=== PATIENT | male | born 1950 | race Caucasian/White ===

== ENCOUNTER 2019-07-14 10:51 | Outpatient (CLI) | payer MEDICARE, SELFPAY ==
--- NOTE | ~2019-07-14 | XR_ITS ---
EXAMINATION: XR md joint inject/asp w image DATE: 07/14/2019 15:09 INDICATION: Left wrist pain and swelling and erythema. TECHNIQUE: A time-out was performed to verify the patient's name, date of , and procedure to b e performed. The procedure including the risks, benefits, and alternatives was discussed with the pat ient. Risks discussed included bleeding and infection. The patient understood the risks and agreed to proceed. The skin overlying the left radioscaphoid joint was prepped and draped in usual sterile fa shion. Anesthetic was administered with 1% lidocaine subcutaneously. An 18 G needle was advanced un bertrand fluoroscopic guidance into the joint. Fluid was aspirated. The needle was removed and the entry site was cleaned and dressed. There were no immediate complications. Fluoroscopy exposure time was 0 .1 minutes. The total number of images was 1. FINDINGS: Real-time fluoroscopy demonstrates the needle in the left radioscaphoid joint. IMPRESSION: 1. Fluoroscopy-guided left radioscaphoid joint aspiration yielding 1 mL lima, opaque fluid. Reviewed, dictated and finalized at location A. IMPRESSION: 1. Fluoroscopy-guided left radioscaphoid joint aspiration yielding 1 mL lima, op aque fluid.
[2019-07-14 11:36] LABS: Basophils Absolute Auto 0.1 K/mm3 (0.0-0.1); Basophils Percent Auto 0.4 % (0.2-1.2); Eosinophils Absolute Auto 0.2 K/mm3 (0-0.3); Eosinophils Percent Auto 1.5 % (0-4.4); Hemoglobin 17.6 g/dL (14.0-18.0); Immature Granulocyte Absolute 0.14 K/mm3 (0.00-0.031); Mean Corpuscular HGB Conc 32.6 g/dl (32-36); Mean Platelet Volume 10.1 fl (7.4-10.4); Monocytes Absolute Auto 0.9 K/mm3 (0.1-0.6); Monocytes Percent Auto 6.6 % (2.6-8.5); Neutrophils Absolute Auto 10.2 K/mm3 (1.3-6.7); Neutrophils Percent Auto 74.5 % (45.5-73.1); Platelet Count Result 386 k/mm3 (150-375); Red Blood Count 6.28 M/mm3 (4.6-6.20); Red Cell Distribution Width 13.2 % (11.5-14.5); White Blood Count 13.7 K/mm3 (4.5-10.0)
[2019-07-14 11:52] LABS: CRP 6.4 mg/dL (<1.0); Uric Acid 6.1 mg/dL (3.5-8.5)
[2019-07-14 12:03] LABS: Rheumatoid Factor 19.3 IU/ML (<12)
[2019-07-14 12:18] LABS: Erythrocyte Sedimentation Rate 11 mm/hr (0-20)
[2019-07-17 11:37] LABS: Anti Cyclic Citrullinated Pept <16 Units (<20)
== END 2019-07-14 10:52 | disposition home or self-care (01) ==
PROVIDERS: PCP Internal Medicine; Visit Provider Orthopaedic Surgery
DX: M25.532 Pain in left wrist (principal)
CPT/HCPCS: 20605; 36415; 77002; 84550; 85025; 85652; 86140; 86200; 86430; 87070; 87075; 87147; 87186; 87205

== ENCOUNTER 2022-02-07 08:25 | Outpatient (CLI) | payer MEDICARE, SELFPAY ==
[2022-02-07 20:18] LABS: Free T4 Free Thyroxine 1.61 ng/mL (0.78-2.19)
[2022-02-07 20:47] LABS: Alanine Aminotransferase 29 U/L (6-50); Albumin Level 4.3 g/dL (3.5-5.1); Alkaline Phosphatase 94 U/L (38-126); Anion Gap 8 mmol/L (8-16); Aspartate Amino Transferase 44 U/L (17-59); Bilirubin,Total 0.7 mg/dL (0.2-1.3); Blood Urea Nitrogen 17 mg/dL (9-20); Calcium 9.3 mg/dL (8.4-10.2); Carbon Dioxide 27 mmol/L (22-30); Chloride 105 mmol/L (98-107); Cholesterol 269 mg/dL (0-200); Estimated Glomerular Filt Rate > 60; Glucose 89 mg/dL (65-110); HDL Direct 44 mg/dL; Potassium 4.4 mmol/L (3.4-5.0); Sodium 140 mmol/L (137-145); Triglycerides 150 mg/dL (<150)
[2022-02-07 20:59] LABS: LDL Cholesterol Direct 133 mg/dL
[2022-02-07 21:17] LABS: Prostate Specific Antigen 1.3 ng/mL (< OR = 4.0)
== END 2022-02-07 08:26 | disposition home or self-care (01) ==
PROVIDERS: PCP Internal Medicine; Visit Provider Internal Medicine
DX: E78.00 Pure hypercholesterolemia, unspecified (principal); E03.9 Hypothyroidism, unspecified; Z12.5 Encounter for screening for malignant neoplasm of prostate
CPT/HCPCS: 36415; 80053; 80061; 84153; 84439; 84443; G0103

== ENCOUNTER 2023-11-30 00:07 | Day surgery (SDC) | payer MEDICARE, SELFPAY ==
[2023-11-28 12:21] VITALS: BMI 30.7
--- NOTE | 2023-11-28 12:29 | PC.NURSE ---
Addendum entered by Abraham Roth RN 11/28/23 13:24: Correction, proceedure time is 1230. Original Note: Report to the Outpatient Waiting Room, entrance under the green pavilion located off [address], at time _1030_ on date _[id number]_. Planned Procedure Time: _1130_.? Time changes happen often and if your time is changed the preop area will call you the afternoon before. - You and your visitor will be asked to self-screen and do not enter if you have any COVID symptoms. Please call surgeon if you need to reschedule. - A mask is optional within the hospital at this time. - No food or drink from midnight until time of surgery and no smoking Take only the following medications with a SIP of water on the morning of surgery: __Levothyroxine and celebrex DO NOT STOP ANY OF YOUR OTHER PRESCRIPTION MEDICATIONS PRIOR TO SURGERY EXCEPT THE FOLLOWING Medications to discontinue per physician None Please no make-up, nail lithuanian, hairspray, perfume, deodorant, or body powder the day of surgery.? No jewelry (including any body piercings) or valuables the day of surgery, leave them at home.? Please take a shower or bath the night before, or the morning of, surgery with an antibacterial soap.? Wear comfortable, loose fitting clothing.? - Jewelry must be removed prior to entering the operating room.? Rings and piercings that are not removed may be cut off. - The hospital will not accept responsibility for valuables.? - Please leave all valuables, including medications, at home the day of surgery. If you are going home after surgery, a licensed passenger coach driver must drive you home.? - NO public transportation without another adult if you receive anesthesia. - We recommend that an adult stay with you for 24 hours following discharge. - We also recommend that you do not drive, make important decision, drink alcoholic beverages, or take any drugs that were not prescribed by your health care provider for at least 24 hours after your discharge time. Follow any additional instructions given to you from your surgeon. Telephone instructions given to __Louis___and asked if any additional questions and then verbalized understanding. Patient advised to call surgeon office or pre surgery nurse liaison [phone] if any additional questions.
[2023-11-30] VITALS (11 sets, daily range): BP systolic 68–126; BP diastolic 51–96; PULSE 60–76; RESP 12–18; TEMP 36.1–36.5; O2SAT 96–100
[2023-11-30] MEDS: ACETAMINOPHEN 500 MG TABLET 1000 MG PO (10:35)
[2023-11-30] MEDS: LACTATED RINGERS 1,000 ML 30 ML IV CONT ×2 (10:40→15:25)
[2023-11-30] MEDS: KETOROLAC 15 MG/ML VIAL (*BKC) IV PUSH (10:45)
--- NOTE | 2023-11-30 13:21 | P.PNAN_ITS ---
Anes - Initial Pre Proc Eval Procedure: Operation Date: 11/30/23 12:30 Proposed Procedures p Rectal Examination Under Anesthesia, Excision Thrombosed External Hemorrhoids - Rocio Mckenzie MD Date/Time: 11/30/23 13:21 Surgeon: Rocio Mckenzie MD Pre Op Diagnosis: Thrombosed External Hemorrhoid Patient Data Age: 73 Gender: M Height: 1.8 m Weight: 97.7 kg Last Vital Signs Temp 36.1 C L 11/30/23 11:12 Pulse 76 11/30/23 11:12 Resp 18 11/30/23 11:12 BP 122/96 H 11/30/23 11:12 Pulse Ox 99 11/30/23 11:12 O2 Del Method Room Air 11/30/23 11:12 Allergies Allergy/AdvReac Type Severity Reaction Status Date / Time Fxdstmb-WYK-HsV Reductase Allergy Mild Unknown Verified 11/28/23 12:19 Inhibitor Home Medications Medication Instructions Recorded Confirmed Type celecoxib 200 mg capsule 200 mg PO DAILY 11/28/23 11/28/23 History hydrocortisone 2.5 % topical cream 1 applic RECTAL BID PRN 11/28/23 11/28/23 Rx with perineal applicator hemorrhoids #30 grams (Anusol-HC) levothyroxine 75 mcg capsule 75 mcg PO DAILY 11/28/23 11/28/23 History Patient hx anesthesia problems: none Family hx anesthesia problems: none Results Review: All pre-operative results and documents have been reviewed as part of the pre- operative evaluation. [facility] Past Medical History Medical History (Updated 11/28/23 @ 11:16 by Leesa Chahal) Arthritis History of meningioma Thyroid disease Surgical History Surgical History History of carpal tunnel release History of cataract extraction History of foot surgery History of hemorrhoidectomy History of laminectomy History of left knee surgery History of lumbar surgery History of microdiscectomy History of shoulder surgery Family History Family History Other Alcohol abuse Asthma Cerebrovascular accident Diabetes mellitus Social History Social History (System 02/07/19 @ 10:52 by Leny Mcqueen) Smoking status: Never smoker Alcohol intake: never Living arrangements: with family Spiritual care concerns: No Anes - Eval Final PreProcedure Day of Procedure 11/30/23 13:21 Patient weight: obese Heart: regular rate and rhythm Lungs: clear to auscultation Airway: Mallampati scale class II Neurological: alert and oriented Last oral intake: >/= 8 hours ASA classification: II Emergent: no Anesthetic plan: proceed Anesthesia type and monitoring: general LMA and standard monitoring Results Review: All pre-operative results and documents have been reviewed as part of the pre- operative evaluation. Informed Consent: The patient's anesthetic plan and its attendant risks and benefits were discussed with the patient/family/POA. Questions were solicited and answers provided to the satisfaction of the patient/family/POA.
--- NOTE | 2023-11-30 14:23 | WPDHPUPDATE1 ---
History and Physical Update Update Date/Time: 11/30/23 14:23 History and Physical has been reviewed, including an updated exam of the patient. There are NO changes in the patient's condition. Risks, benefits, and alternatives have been discussed and questions answered. Patient agrees to proceed with procedure.
[2023-11-30] MEDS: ceFAZolin 2 GM/D5W 50 ML 2 GM/50 ML BAG IVPB (14:33)
[2023-11-30] MEDS: BUPIVACAINE/EPINEPHRINE 0.5% 10 ML VIAL INFILTRATE (15:02)
--- NOTE | 2023-11-30 15:02 | SUR.PREOP ---
1100 PT AND INFORMED OF SURGERY TIME DELAY, DENIES NEEDS 1310 PT AND INFORMED OF CONTINUED SURGERY TIME DELAY, DENIES NEEDS
--- NOTE | 2023-11-30 15:05 | P.OP_ITS ---
Procedure Note - Detailed Date of Procedure 11/30/23 Pre-op Diagnosis Thrombosed External Hemorrhoid Post-op Diagnosis Same Procedure Performed Exam under anesthesia, excision thrombosed external hemorrhoid Surgeon Rocio Mckenzie MD Anesthesia General and Local Indications 73-year-old male presenting to the office with thrombosed external hemorrhoid Findings thrombosed external hemorrhoid at the 4 to 5 o'clock position Description of Procedure The patient was taken to the operating room placed in the modified lithotomy position. After adequate induction of general anesthesia, the patient was prepped and draped in the normal sterile fashion. A time-out was then done to verify the patient's identity, as well as the procedure being performed. A bilateral pudendal block was then completed. I began by doing a digital examination. A large thrombosed external hemorrhoid was noted in the right posterior position at the 4 to 5 o'clock area. I then placed anoscope into the anal canal and examined the rectum and anal canal. No other pathology was noted. I then excised this thrombosed external hemorrhoid using a hand-held LigaSure device. After excision this thrombosed hemorrhoid was sent to path ology for further review. No other pathology was again noted. Hemostasis was noted at the excision site. I then further localize the area. A large piece of Gelfoam covered with lidocaine jelly was then placed into the rectal vault. Sterile dressings were then placed. The patient tolerated the procedure well and was extubated postoperatively. He will be sent to the recovery room in stable condition. Estimated Blood Loss 5 Drains No Packing Yes Pathology None sent Complications No immediate complications Condition Stable Disposition PACU [facility] Billing Surgery - Charge Forward: Surgery Billing
[2023-11-30] MEDS: PHENYLEPHRINE 1,000 MCG/10 ML SYRINGE 100 MCG IV PUSH ×2 (15:16→15:21)
== END 2023-11-30 17:05 | disposition home or self-care (01) ==
PROVIDERS: PCP Internal Medicine; Visit Provider Surgery
PROC: (CPT 46230; principal; 2023-11-30 12:30)
DX: K64.5 Perianal venous thrombosis (principal); E07.9 Disorder of thyroid, unspecified; E66.9 Obesity, unspecified; Z68.30 Body mass index [BMI] 30.0-30.9, adult; Z98.890 Other specified postprocedural states; Z98.1 Arthrodesis status; Z86.011 Personal history of benign neoplasm of the brain; Z82.49 Family history of ischemic heart disease and other diseases of the circulatory system
CPT/HCPCS: 46230; 88304; A9270; J0690; J1100; J1885; J2250; J2371; J2405; J2704; J3010; J7120

== ENCOUNTER 2024-07-15 09:40 | Outpatient (CLI) | payer MEDICARE, SELFPAY ==
--- OUTSIDE RECORDS SUMMARY | 2024-07-15 10:40 | XMS_ITS | Clinical Summary ---
Author Organization [place] [id number] Address [address] [place] [address] Care Team Providers Care Gasoline Tester Name Role Phone Maik Freedman MD Primary Care Provider Colby Jaimes MD Unavailable [phone] Allergies Active Allergy Reactions Criticality Noted Date Comments Gmmqzcx-Zfu-Wea Reductase Inhibitors Muscle pain Medium 07/14/2019 Medications levothyroxine (SYNTHROID) 75 mcg tablet 0 Active metoprolol tartrate (LOPRESSOR) 25 mg immediate release tablet Take 0.5 tablets (12.5 mg total) by mouth 2 (two) times a day 30 tablet 0 Active oxyCODONE (ROXICODONE) 5 mg immediate release tabletIndicatio ns:Pain Take 1 tablet (5 mg total) by mouth every 4 (four) hours as needed for pain 5 tablet 0 Active Additional Information Patient not taking.Reported on 06/09/2022 acetaminophen (TYLENOL) 325 mg tablet Take 2 tablets (650 mg total) by mouth every 6 (six) hours as needed for pain 30 tablet 0 Active celecoxib (CeleBREX) 200 mg capsule 3 Active Active Problems Problem Noted Date Diagnosed Date Arthritis of wrist, left 06/09/2022 Pyogenic arthritis of left wrist 07/14/2019 Overview (07/14/2019): Added automatically from request for surgery [id number] Lumbago 12/15/2015 Degeneration of intervertebral disc of lumbar re gion 09/15/2015 Pain of right lower extremity 09/15/2015 Complete tear of rotator cuff 09/30/2008 Joint pain 09/30/2008 Surgical History Surgery Date Site/Laterality Comments KNEE SURGERY Left Knee Surgery - (Added by TW Conv) BRAIN SURGERY Brain Surgery - meningioma resection (Added by TW Conv) SHOULDER SURGERY Shoulder Surgery - (Added by TW Conv) BACK SURGERY Back Surgery - (Added by TW Conv) LAMINECTOMY 03/19/2017 - 03/18/2018 BRAIN MENINGIOMA EXCISION 03/19/1997 - 03/18/1998 EYE SURGERY cataract surgery TOE SURGERY Bilateral Medical History Medical History Date Comments Pure hypercholesterolemia High c holesterol - (Added by TW Conv) Personal history of other en docrine, nutritional and metabolic disease History of hypothyro idism - (Added by TW Conv) Atrial fibrillation (HCC) Family History Medical History Relation Name Comments Cancer Father Family history of malignant neoplasm - (Added by TW Conv) Diabetes Other Family history of diabetes mellitus - Relation: Grandmother (Added by TW Conv) Anesthesia problems Neg Hx Relation Name Status Comments Father Other Social History Tobacco Use Types Packs/Day Years Used Date Smoking Tobacco: Never Smokeless Tobacco: Never Tobacco Cessation:Counseling Given: Not Answered Alcohol Use Standard Drinks/Week Comments Defer 0 (1 standard drink = 0.6 oz pur e alcohol) Sex and Gender Information Value Date Recorded Sex Assigned at Not on file Legal Sex Male 4:03 AM [employer] Gender Identity Not on file Sexual Orientation Not on file Obstetrics History Last Filed Vital Signs Vital Sign Reading Time Taken Comments Blood Pressure 110/70 08/07/2019 9:39 AM CDT Pulse 74 08/07/2019 9:39 AM CDT Temperature 36.4 C (97.5 F) 08/07/2019 9:39 AM CDT Respiratory Rate 18 08/07/2019 9:39 AM CDT Oxygen Saturation 97% 08/07/2019 9:39 AM CDT Inhaled Oxygen Concentration - - Weight 95.3 kg (210 lb) 06/09/2022 1:17 PM CDT Height 172.7 cm (5' 8 ) 06/09/2022 1:17 PM CDT Body Mass Index 31.93 06/09/2022 1:17 PM CDT Plan of Treatment Health Maintenance Due Date Last Done Comments Colon Cancer Screening-Colonoscopy 1950 Depression Screening 1950 Hepatitis C Screening 1950 DTaP/Tdap/Td Vaccine (1 - Tdap) 1962 Hepatitis B Screening 1969 Zoster Vaccine (2 of 3) 03/02/2015 01/05/2015 Abdominal Aortic Aneurysm (A AA) Screen 2016 Well Visit 65+ 2016 Fall Risk Assessment 07/17/2020 07/18/2019 Covid-19 Vaccine (4 - 2023-2 5 season) 2023 01/03/2021, 06/04/2020, 05/13/2020 Influenza Vaccine (#1) 2023 , 01/11/2022, 12/28/2020, Additional history exists Pneumococcal vaccine 65+ Completed 02/10/2020, 01/17 Insurance MEDICARE [facility] MEDICARE [employer] [facility] MEDICARE [employer] [facility] MEDICARE [facility] Advance Directives For more information, please contact: [phone] * Full Code (Latest Code Status on File) Date Activated Date Inactivated Comments 07/15/2019 1:14 AM 07/18/2019 3:00 PM Care Teams Gasoline Tester Relationship Specialty Start Date End Date Maik Freedman MD [address] [facility] [address] [place] [address] PCP - General 07/14/19 Colby Jaimes MD [address] [facility] [address] [place] [address] Surgeon Anesthesiology 07/25/19
--- OUTSIDE RECORDS SUMMARY | 2024-07-15 10:40 | XMS_ITS | Clinical Summary ---
Author Organization [facility] Address [address] [place] [address] Care Team Providers Care Farm Operator Name Role Phone Maik Freedman MD Unavailable [phone] Maik Freedman MD Primary Care Provider [phone] Source Comments [facility],non-owned Affiliates and Associated Physician Practices is amultiple site organization consisting of ambulatory clinics and hospital sitesin [place], [place], [place] and [place]. This disclosure is being madepursuant to the Care Everywhere program and may not contain all information available regarding this patient. Last updated 17.[facility] Allergies Active Allergy Reactions Criticality Noted Date Comments Hmg-Coa-R Inhibitors Myalgias High 11/06/2017 Medications * Be aware that medications may not be up to date on this document. Alwaysverify current medications with the patient. levothyroxine (SYNTHROID) 125 MCG tablet Take 75 mcg by mouth daily before breakfast Active acetaminophen (TYLENOL) 500 MG tablet Take 2 (two) tablets by mouth as needed for Fever or Pain Maximum allowable Acetaminophen amount = 4 Grams (4000 mg) / 24 hours. Active methocarbamol (Robaxin) 500 MG tablet Take 1 (one) tablet by mouth every 6 hours 3 Active metoprolol tartrate IR (Lopressor) 25 MG tablet Take 1 (one) tablet by mouth 2 times daily 3 Active Active Problems Problem Noted Date Diagnosed Date A-fib 02/25/2023 Bacteremia 02/25/2023 S/P lumbar spinal fusion 02/23/2023 Class 1 obesity 08/15/2022 11/14/2022 Arthritis of wrist, left 06/09/2022 023 Disorder of prostate 01/23/2022 11/14/2022 Carotid bruit 01/18/2022 Hyperlipidemia 01/18/2022 Hypothyroidism 01/18/2022 Pure hypercholesterolemia 01/18/2022 Transient ischemia 01/18/2022 Transient ischemic attack 01/18/2022 Lumbar radiculopathy 01/18/2022 Idiopathic peripheral neuropathy 10/31/2021 Onychomycosis of toenail 10/31/2021 Pain in both feet 10/31/2021 COVID-19 09/29/2021 History of meningioma 12/28/2020 Dystrophia unguium 09/25/2019 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 Tinea pedis 09/25/2019 Pyogenic arthritis of hand 08/05/2019 Pyogenic arthritis of hand 08/05/2019 Pyogenic arthritis of left wrist 07/14/2019 Overview (01/18/2022): Added automatically from request for surgery [id number] History of colonic polyps 01/30/2019 Osteoarthrosis 01/30/2019 Acquired hallux rigidus of left foot 11/07/2018 Foot pain 11/07/2018 Spinal stenosis of lumbar re gion with neurogenic claudication 11/09/2017 Lumbago 12/15/2015 Degeneration of intervertebral disc of lumbar re gion 09/15/2015 Pain of right lower extremity 09/15/2015 Status post lumbar discectomy 09/07/2010 Displacement of lumbar inter vertebral disc without myelopathy 08/29/2010 Complete tear of rotator cuff 09/30/2008 Joint pain 09/30/2008 Immunizations Immunization Administration Dates Next Due Fluidinova - Engenharia de Fluidos primary monoval ent 12+ yr 0.3mL Purple cap 01/03/2021 INFLUENZA VACCINE 01/11/2022,12/28/2020 INFLUENZA VACCINE, QUADR. (F LUZONE; FLULAVAL; FLUARIX; AFLURIA QUADRIVALENT; 6MO+), 0.5 ML (IIV4) 01/04/2016 PNEUMOCOCCAL PPSV23 02/10/2020 Pneumococcal Pcv13 Conj 01/31/2019 Family History Medical History Relation Name Comments Alcohol abuse Father COPD - Chronic Obstructive Pulmonary Disease Father Other Father Stroke, liver d isease Other - Rheumatologic Father Arthisaak naik COPD - Chronic Obstructive Pulmonary Disease Mother Other Mother Stomach ulcer Thyroid Disease Mother Relation Name Status Comments Father Mother Sister Alive Social History Tobacco Use Types Packs/Day Years Used Date Smoking Tobacco: Never Smokeless Tobacco: Never Tobacco Cessation:Counseling Given: No Alcohol Use Standard Drinks/Week Comments No 0 (1 standard drink = 0.6 oz pur e alcohol) AUDIT-C Answer Date Recorded Q1: How often do you have a drink containing alcohol? Never 02/24/2023 Q2: How many drinks containi ng alcohol do you have on a typical day when you are drinking? Patient does not drink Q3: How often do you have si x or more drinks on one occasion? Never 02/24/2023 Overall Financial Resource Strain (CARDIA) Answe r Date Recorded How hard is it for you to pa y for the very basics like food, housing, medical care, and heating? Not hard at all 02/24/2023 [facility] - Occupational Stress Questionnaire Answer Date Recorded Do you feel stress - tense, restless, nervous, or anxious, or unable to sleep at night because your mind is troubled all the time - these days? Not at all 02/24/2023 Hunger Vital Sign Answer Date Recorded Within the past 12 months, y ou worried that your food would run out before you got the money to buy more. Never true 02/25/20 23 Within the past 12 months, t he food you bought just didn't last and you didn't have money to get more. Never true 02/24/2023 PRAPARE - Transportation Answer Date Re corded In the past 12 months, has l ack of transportation kept you from medical appointments or from getting medications? No 11/2022 In the past 12 months, has l ack of transportation kept you from meetings, work, or from getting things needed for daily living? No 02/24/2023 Housing Stability Vital Sign Answer Amadeo e Recorded In the last 12 months, was t here a time when you were not able to pay the mortgage or rent on time? No 02/24/2023 In the last 12 months, how many places have you lived? 1 02/24/2023 In the last 12 months, was t here a time when you did not have a steady place to sleep or slept in a detention (including now)? No 02/24/2023 Sex and Gender Information Value Date Recorded Sex Assigned at Not on file Legal Sex Male 11:49 AM SENIOR CONSULTING MANAGER Gender Identity Not on file Sexual Orientation Not on file Occupation Industry Job Start Date Job End Date retired Not on file Not on file Not on file Last Filed Vital Signs Vital Sign Reading Time Taken Comments Blood Pressure 126/89 12/19/2023 10:45 AM CDT Pulse 72 12/19/2023 10:45 AM CDT Temperature 36.3 C (97.3 F) 12/19/2023 10:45 AM CDT Respiratory Rate 18 12/19/2023 10:4 5 AM CDT Oxygen Saturation 98% 12/19/2023 10: 45 AM CDT Inhaled Oxygen Concentration - - Weight 100.5 kg (221 lb 9.6 oz) 024 10:45 AM CDT Height 180.3 cm (5' 11 ) 12/19/2023 10: 45 AM CDT Body Mass Index 30.91 12/19/2023 10:45 AM CDT Plan of Treatment Health Maintenance Due Date Last Done Comments COLOGUARD (AGES 45-75) - COLON CA SCREENING 1951 COLON MONITORING 1950 COLONOSCOPY - COLON CA SCREENING 1951 CT COLONOGRAPHY - COLON CA SCREENING 1950 Colorectal Cancer Screening 1950 FIT - COLON CA SCREENING 1951 FLEX SIG - COLON CA SCREENING 1950 LIPID TESTING 1950 MEDICARE AWV 12 MONTHS 1950 HEPATITIS C SCREENING 03/06/1969 DTAP/TDAP/TD VACCINES (1 - Tdap) 1970 ZOSTER VACCINE (1 of 2) 2001 COVID-19 VACCINE (2 - season) 2023 01/03/2021 DEPRESSION SCREENING 03/19/2024 INFLUENZA VACCINE (Season Ended) 2024 12/16/2022, 01/11/2022, 12/28/2020, Additional history exists SCREENING FOR DIABETES 03/03/2026 3, 03/01/2023, 02/27/2023, Additional history exists Respiratory Syncytial Virus (RSV) Vaccine Pt: or over 60 yrs (1 - 1-dose 75+ series) 2026 PNEUMOCOCCAL VACCINE 50+ Completed 02/10/2020, 01/17 HEPATITIS B VACCINE Aged Out No longe r eligible based on patient's age to complete this topic HIB VACCINE Aged Out No longer eligi ble based on patient's age to complete this topic HPV VACCINE Aged Out No longer eligi ble based on patient's age to complete this topic MENINGOCOCCAL (Group B) VACCINE SHARED DECISION-MAKING Aged Out No longer eligible based on patient's age to complete this topic MENINGOCOCCAL GROUPS A/C/Y/W VACCINE Aged Out No longer eligible based on patient's age to complete this topic Medical Devices Implanted Type Area Punch Machine Operator Device Identifier Shelf Expiration Date Model / Serial / Lot Kore Fiber Demineralized Cortical Fiber Implanted:Qty: 1 on 02/23/2023 by Flavio Nunez MD at [facility] N/A: Spine Lumbar 10/24/2024 [id number] / [id number] / Description:jy Slnt Dura Duraseal Pg Trilysine Amine 5 Implanted:Qty: 1 on 02/23/2023 by Flavio Nunez MD at [facility] N/A: Spine Lumbar Integra [employer] Carmen 01/17/2024 [id number] / / [id number] 22mm X 10 Mm Cage Implanted:Qty: 1 on 02/23/2023 by Flavio Nunez MD at [facility] N/A: Spine Lumbar 04/01/2026 [id number] 210 / / [id number] 22mm X 10mm Cage Implanted:Qty: 1 on 02/23/2023 by Flavio Nunez MD at [facility] N/A: Spine Lumbar 04/01/2026 [id number] 210 / / [id number] Kore Fiber Demineralized Cortical Fiber Implanted:Qty: 1 on 02/23/2023 by Flavio Nunez MD at [facility] N/A: Spine Lumbar 10/24/2024 [id number] / [id number] / Description:jy Cage Implanted:Qty: 1 on 02/23/2023 by Flavio Nunez MD at [facility] N/A: Spine Lumbar [employer] 04/01/2026 [id number] 211 / / [id number] Description:jy Cage Implanted:Qty: 1 on 02/23/2023 by Flavio Nunez MD at [facility] N/A: Spine Lumbar [id number] 211 / / [id number] Screw Set Spne [place] 5500 Ser Implanted:Qty: 12 on 02/23/2023 by Flavio Nunez MD at [facility] N/A: Spine Lumbar [employer] [id number] / / Screw 6.5mm 50mm Spne Pdcl [place]awa Nonster Implanted:Qty: 6 on 02/23/2023 by Flavio Nunez MD at [facility] N/A: Spine Lumbar [employer] [id number] / / 8.5x80 Mm Iliac Screw Implanted:Qty: 2 on 02/23/2023 by Flavio Nunez MD at [facility] N/A: Spine Lumbar [id number] / / 7.5x40mm Screw Implanted:Qty: 2 on 02/23/2023 by Flavio Nunez MD at [facility] N/A: Spine Lumbar [id number] / / 7.5x50 Mm Screw Implanted:Qty: 2 on 02/23/2023 by Flavio Nunez MD at [facility] N/A: Spine Lumbar [id number] / / Procedures Procedure Name Priority Date/Time Associated Diagnosis Comments BASIC METABOLIC PANEL (CALCIUM TOTAL) Routine 03/03/2023 3:35 AM SENIOR CONSULTING MANAGER from Last 3 Months or Most Recently Relevant to Health Maintenance Results * (ABNORMAL) BASIC METABOLIC PANEL (CALCIUM TOTAL) (03/03/2023 3:35 AM SENIOR CONSULTING MANAGER) [facility] Glucose 87 70 - 105 mg/dL 03/03/2023 6:33 AM [facility] Sodium 136 136 - 145 mmol/L 03/03/2023 6:33 AM [facility] Potassium 3.9 3.5 - 5.1 mmol/L 03/03/2023 6:33 AM [facility] Chloride 104 98 - 107 mmol/L 03/03/2023 6:33 AM [facility] CO2 21(L) 22 - 29 mmol/L 03/03/2023 6:33 AM [facility] Calcium 8.5 8.4 - 10.4 mg/dL 03/03/2023 6:33 AM [facility] Anion Gap 11 6 - 16 mmol/L 03/03/2023 6:33 AM [facility] BUN 15 7 - 26 mg/dL 03/03/2023 6:33 AM [facility] Creatinine 0.81 0.72 - 1.25 mg/dL 03/03/2023 6:33 AM [facility] eGFR by CKD-EPI >90 >=90 mL/min/1.7 3 m2 03/03/2023 6:33 AM [facility] Blood BLOOD SPECIMEN / Unknown Lab Venipuncture / Unknown 03/03/2023 3:35 AM SENIOR CONSULTING MANAGER 03/03/2023 5:08 AM [facility] Cosme Pardo MD LAB - CHEMISTRY ORDERABLES Final Result [facility] [address] [place] [address] from Last 3 Months or Most Recently Relevant to Health Maintenance Insurance MEDICARE ANTHEM Advance Directives Documents on File Type Date Recorded Patient Manager Internet Expl anation Adv Directive/Living Will/POA 08/25/2010 2:24 PM * Full Code (Latest Code Status on File) Date Activated Date Inactivated Comments 02/28/2023 6:03 PM 03/05/2023 4:02 PM * Full Code Date Activated Date Inactivated Comments 02/23/2023 4:34 PM 02/28/2023 5:58 PM * Full Code Date Activated Date Inactivated Comments 11/09/2017 3:34 PM 11/10/2017 11:16 AM * Full Code Date Activated Date Inactivated Comments 08/23/2010 4:21 PM 08/25/2010 2:06 AM Care Teams Farm Operator Relationship Specialty Start Date End Date Maik Freedman MD [address] [place] [address] [address] [place] [address] PCP - General 11/25/21 Maik Freedman MD Internal Medicine 08/22/10
--- OUTSIDE RECORDS SUMMARY | 2024-07-15 10:40 | XMS_ITS | Referral Summary ---
Author Organization [place] [facility] [facility] Address [address] [place] [address] Care Team Providers Care Manager Target Name Role Phone Maik Freedman MD Primary Care Provider Colby Jaimes MD Unavailable [phone] Allergies Active Allergy Reactions Criticality Noted Date Comments Qrotbrv-Nbb-Nhs Reductase Inhibitors Muscle pain Medium 07/14/2019 Medications [...] (07/14/2019): Added automatically from request for surgery [id number] Lumbago 12/15/2015 Degeneration of intervertebral disc of lumbar re gion 09/15/2015 Pain of right lower extremity 09/15/2015 Complete tear of rotator cuff 09/30/2008 Joint pain 09/30/2008 Social History Tobacco Use Types Packs/Day Years Used Date Smoking Tobacco: Never Smokeless Tobacco: Never Tobacco Cessation:Counseling Given: Not Answered Alcohol Use Standard Drinks/Week Comments Defer 0 (1 standard drink = 0.6 oz pur e alcohol) Sex and Gender Information Value Date Recorded Sex Assigned at Not on file Legal Sex Male 4:03 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 Gender Identity Not on file Sexual Orientation Not on file Last Filed Vital Signs [...] 06/09/2022 1:17 PM CDT Plan of Treatment Not on file Insurance MEDICARE [facility] MEDICARE [facility] MEDICARE [facility] MEDICARE [facility] Advance Directives For more information, please contact: [phone] * Full Code (Latest Code Status on File) Date Activated Date Inactivated Comments 07/15/2019 1:14 AM 07/18/2019 3:00 PM Care Teams Manager Target Relationship Specialty Start Date End Date Maik Freedman MD [address] [facility] [address] [place] [address] PCP - General 07/14/19 Colby Jaimes MD [address] [facility] [address] [place] [address] Surgeon Anesthesiology 07/25/19
--- OUTSIDE RECORDS SUMMARY | 2024-07-15 10:40 | XMS_ITS | Clinical Summary ---
Author Organization [facility] Address [address] [place] [address] Care Team Providers Care Procurement Engineer Name Role Phone Maik Freedman MD Primary Care Provider [phone] Allergies Active Allergy Reactions Criticality Noted Date Comments Diclofenac Other (See Comments) 02/28/2023 Statins Other (See Comments) Medium 07/14/2019 Medications acetaminophen (TYLENOL) 325 MG tablet Take 2 tablets (650 mg total) by mouth every 6 (six) hours as needed for moderate pain. 03/05/2023 Active levothyroxine (SYNTHROID) 75 MCG tablet Take 1 tablet (75 mcg total) by mouth Daily at 6am. 03/06/2023 Active metoprolol tartrate (LOPRESSOR) 25 MG tablet Take 1 tablet (25 mg total) by mouth in the morning and 1 tablet (25 mg total) before bedtime. 03/05/2023 Active polyethylene glycol (MIRALAX) 17 g packet Take 17 g by mouth in the morning. 03/06/2023 Active Active Problems Problem Noted Date Diagnosed Date Degeneration of lumbar intervertebral disc 02/28 Hypothyroidism 02/28/2023 Atrial fibrillation with rapid ventricular respo nse 02/28/2023 Thrombophlebitis 02/28/2023 Spinal stenosis of lumbar re gion with neurogenic claudication 02/28/2023 Immunizations Immunization Administration Dates Next Due Qing Sars-cov-2 Vaccination 3(Deferred: Offered and declined - Pt had vaccincines initially) Family History Medical History Relation Name Comments Alcohol abuse Father Arthritis Father COPD Father COPD Mother Thyroid disease Mother Relation Name Status Comments Father Mother Social History Tobacco Use Types Packs/Day Years Used Date Smoking Tobacco: Never Tobacco Cessation:Counseling Given: Not Answered Alcohol Use Standard Drinks/Week Comments Not Currently 0 (1 standard drink = 0.6 oz pur e alcohol) Sex and Gender Information Value Date Recorded Sex Assigned at Not on file Legal Sex Male 1:06 PM EST Gender Identity Not on file Sexual Orientation Not on file Last Filed Vital Signs Vital Sign Reading Time Taken Comments Blood Pressure 104/67 03/05/2023 6:54 AM SOLUTIONS DEVELOPER Pulse 98 03/05/2023 6:54 AM SOLUTIONS DEVELOPER Temperature 36.7 C (98.1 F) 03/05/2023 6:54 AM SOLUTIONS DEVELOPER Respiratory Rate 18 03/05/2023 6:54 AM SOLUTIONS DEVELOPER Oxygen Saturation 94% 03/05/2023 6:54 AM SOLUTIONS DEVELOPER Inhaled Oxygen Concentration - - Weight 97.1 kg (214 lb) 03/03/2023 7:35 PM SOLUTIONS DEVELOPER Height 180.3 cm (5' 11 ) 02/28/2023 5:28 PM SOLUTIONS DEVELOPER per pt Body Mass Index 29.85 02/28/2023 5:28 PM SOLUTIONS DEVELOPER Plan of Treatment Health Maintenance Due Date Last Done Comments CT Colonography 1950 Colonoscopy 1950 Colorectal Cancer Screening 1950 FIT-DNA (Cologuard) 1950 FIT 1950 FOBT 1950 Sigmoidoscopy 1950 Annual Visit Topic 1952 DTaP/Tdap/Td Vaccines (1 - Tdap) 1958 Hepatitis C Screening 1969 Pneumococcal Vaccine: 65+ Ye ars (1 of 4 - PCV) 2001 HIB Vaccines Aged Out No longer eligi ble based on patient's age to complete this topic HPV Vaccines Aged Out No longer eligi ble based on patient's age to complete this topic Hepatitis A Vaccines Aged Out No long er eligible based on patient's age to complete this topic Hepatitis B Vaccines Aged Out No long er eligible based on patient's age to complete this topic IPV Vaccines Aged Out No longer eligi ble based on patient's age to complete this topic Meningococcal Vaccine Aged Out No karin mark eligible based on patient's age to complete this topic Advance Directives * Full Resuscitation (Latest Code Status on File) Date Activated Date Inactivated Comments 02/28/2023 6:36 PM 03/05/2023 6:22 PM Question Answer Comments I have discussed this order with the patient or his/her surrogate and have received informed consent. Yes Care Teams Procurement Engineer Relationship Specialty Start Date End Date Maik Freedman MD [address] [address] PCP - General 03/01/23
--- OUTSIDE RECORDS SUMMARY | 2024-07-15 10:40 | XMS_ITS | Data Portability ---
Author Organization [place] [facility] [employer], Main Office Address [address] [place] [address] Care Team Providers Care Inspector Packager Name Role Phone FREEDMAN DHRUV Primary Care Provider IZABELLA DHRUV Referring Provider [phone] Assessment Encounter Date Assessment Date Assessment LastModified by Organization Details LastModified Time 02/07/2024 02/07/2024 1. Cyst mid back. We will schedule for excision here in the office under local anesthesia. 2. Nodule on finger. Will refer to Hand surgery. Not available 02/07/2024 11:11:21 02/21/2024 02/21/2024 procedure performed without difficulty. Dictated. Follow-up 1 week Not available 02/21/2024 11:30:50 Plan of Treatment Reminders Order Date Submit Date Provider Last Modified By Organization Details Last Modified Time Details Appointments None recorded. Lab vitamin B12, serum 2024 025 [email or web address] [facility], [address] [place], [address], 10:33:45 folate, serum 2024 025 [email or web address] [facility], [address] [place], [address], 10:33:45 Referral None recorded. Procedures None recorded. Surgeries None recorded. Imaging None recorded. Medication Orders Anusol-HC 2.5 % topical cream with perineal applicator 2023 024 [email or web address] [id number], [address], [place], [id number], 14:19:35 Patient TargetsNo targets recorded. Patient Instructions Encounter Date Encounter Id Patient Instructions Last Modified By Organization Details Last Modified Time 11/27/2023 [id number] Currently thrombosed hemorrhoid. Recommend surgical consultation. Additional Orders - Directives - Recommendations 1. General surgery consultation for external thrombosed hemorrhoid Keep Appointment: Sun 09:30 AM [place] Portions of the record may have been created with voice recognition software. Occasional wrong-word or vfchs-[id number] substitutions may have occurred due to the inherent limitations of voice recognition software. Read the chart carefully and recognize, using context, where substitutions have occurred. [email or web address] Not available 11/27/2023 10:50:23 02/19/2024 [id number] Istory of hypothyroidism, degenerative joint disease clinically stable. Also history of hyperlipidemia for which he does not take any type of statin medications because of problem with intolerance to statins in the past. Is clinically doing well otherwise. Had blood work performed by August of 2023 which looked adequate with the exception of the cholesterol. Was given a flu shot today. Is clinically doing well otherwise. Will continue on current Rx and follow-up in six months. Follow Up: 6 Months Approximate Date: 08/17/2024 Portions of the record may have been created with voice recognition software. Occasional wrong-word or mnjyz-e-[id number] substitutions may have occurred due to the inherent limitations of voice recognition software. Read the chart carefully and recognize, using context, where substitutions have occurred. Created: Dhruv Freedman M.D. 02.19.2024 09:35 AM [email or web address] Not available 02/19/2024 10:35:20 06/05/2024 [id number] History of neuropathy lower extremities along with a history of colon polyps and hypothyroidism. Will check a B12 and folate level. Does need a nerve conduction study of the legs. May be having some type of tarsal tunnel type symptoms since he has had most of the numbness and tingling in the soles of the feet. Denies any difficulty with ambulation. Although at times does notice slightly off balance. Does not have any significant back pain or other symptoms related to his back for which he has had surgery in the past. Additional Orders - Directives - Recommendations 1. Follow-up colonoscopy for colon polyps 2. nerve conduction study both lower extremities for history of neuropathy Keep Appointment: Sun 09:30 AM [place] Portions of record are template driven. When necessary additional context will be provided. Additionally some portions have been created with voice recognition software. Occasional wrong-word or [id number]-q-ujvs substitutions may have occurred due to the inherent limitations of voice recognition software. Read the chart carefully and recognize, using context, where substitutions may have occurred. Created: Dhruv Freedman M.D. 06.05.2024 01:31 PM Not available 06/05/2024 14:31:18 Reason for Referral None Reported. Results Created Date Observation Date Name Description Value Unit Range Abnormal Flag Note LastModifiedBy Organization Detail LastModifiedTime 06/06/1906/06/2024 VITAM IN B12/F OLATE , SERUM PANEL vitamin B12 349 pg/mL 200-11 00 normal Pleas e Note: Altho ugh the refer ence range for vitam in B12 is 200-1 100 pg/mL , it has been repor shayy that betwe en 5 and 10% of patie nts with value s betwe en 200 and 400 pg/mL may exper ience neuro psych iatri c and hemat ologi c abnor malit ies due to occul t B12 defic iency ; less than 1% of patie nts with value s above 400 pg/mL will have sympt oms. Not Available [facility] [id number] [place], [address], 06/06/2024 07:18:44 06/06/19 25 06/06/2024 VITAM IN B12/F OLATE , SERUM PANEL folate, serum 3.0 NG/mL low Refer ence Range Low: <3.4 Borde rline : 3.4-5 .4 Mitzy l: >5.4 Not Available [facility] [address] [place], [address], 06/06/2024 07:18:44 Result Notes None recorded. Problems Name Problem SNOMED Code Status Onset Date Resolution Date Notes Provider Name and Address Organization Details Recorded Time History of meningiom a 53445853343 9101 Active 2020 Not Available [facility] 3 01:14:33 Lumbar radiculop athy 731782144 Active Not Available [facility] 3 01:14:34 Pain in both feet 51400578544 406666 Active 2021 Not Available [facility] 3 01:14:34 Postopera tive visit 716468077 Active 2018 Not Available [facility] 3 01:14:34 Idiopathi c periphera l neuropath y 59780114 Active 2021 Not Available [facility] 3 01:14:34 Transient cerebral ischemia 238708367 Active Not Available [facility] 3 01:14:34 Pure hyperchol esterolem ia 013195245 Active Not Available [facility] 3 01:14:34 Disorder of prostate 20876808 Active 2021 Not Available [facility] 3 01:14:34 Neuraprax ia 716242090 Active 2019 Not Available [facility] 3 01:14:34 Osteoarth ritis 694276058 Active 2018 Not Available [facility] 3 01:14:34 Onychomyc osis of toenails 781305231 Active 2021 Not Available [facility] 3 01:14:35 Hypothyro idism 94601918 Active Not Available [facility] 3 01:14:35 History of polyp of colon 768473797 Active 2018 Not Available [facility] 3 01:14:35 Acquired left hallux rigidus 90343219036 4105 Active 2018 Not Available [facility] 3 01:14:35 Foot pain 55269188 Active 2018 Not Available [facility] 3 01:14:35 Hyperlipi demia 49183684 Completed Not Available [facility] 3 01:14:35 Transient ischemia 56582544 Active Not Available [facility] 3 01:14:35 Tinea pedis 6058801 Active 2019 Not Available [facility] 3 01:14:36 Pyogenic arthritis of hand 67185909 Active 2019 Not Available [facility] 3 01:14:36 Acquired hallux rigidus 5749018 Active 2018 Not Available [facility] 3 01:14:36 COVID-19 718853954 Active 2021 Not Available 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 3 01:14:36 Acute pharyngit is 689767621 Active 2022 Dhruv Freedman MD [address], [address], [place], [address] , [facility] 3 10:57:52 Obese class I 49897416885 4107 Active 2022 Dhruv Freedman MD [address], [address], [place], [address] , [facility] 3 10:45:43 Multiple renal cysts 226129825 Active 2022 Dhruv Freedman MD [address], [place], [address] , [facility] 3 14:20:11 Prolapsed lumbar intervert ebral disc 777763903 Active 2022 Dhruv Freedman MD [address], [place], [address] , [facility] 3 10:35:26 Upper respirato ry infection 92020048 Active 2023 Dhruv Freedman MD [address], [place], [address] , [facility] 4 14:39:12 Fever 490028352 Active 2023 Neelima diaz, [place] [facility] 4 14:41:13 Hemorrhoi ds 42033147 Active 2023 Suzi diaz, [place] - [facility] 4 10:47:24 Hemorrhoi ds 76628016 Active 2023 Dhruv Freedman MD [address] [facility], [address], [place], [address] , [facility] 4 10:49:34 Sebaceous cyst of skin 499983322 Active 2023 Neelima Greenwood null, [place] [facility] 4 15:27:21 Epidermoi d cyst of skin of back 334702457 Active 2023 Nicholas alford MD [address] [facility], [facility] [address], [place], [address] , [facility] 4 14:18:04 Nodule on finger 839511663 Active 2023 Nicholas alford MD [address] [facility], [address] [address], [place], [address] , [facility] 4 14:18:27 Disorder of autonomic nervous system 24272517 Active 2024 Suzi Easton null, [place] [facility] 5 14:40:26 Periphera l nerve disease 238155636 Active 2024 Suzi Easton null, [place] [facility] 5 14:41:49 Neuropath y 945930576 Active 2024 Suzi Easton null, [place] [facility] 5 14:42:47 Pain in limb 93430325 Active 2024 Suzi [place]on null, [place] [facility] 5 14:44:30 Bilateral tarsal tunnel syndrome 89990194780 971382 Active 2024 Suzi [place]on null, [place] [facility] 5 14:47:30 Left side sciatica 08222523969 9104 Active 2024 Suzi Easton null, [place] [facility] 5 14:48:05 Numbness of limbs 916666899 Active 2024 Suzi Easton null, [facility] [employer] [facility] 5 14:50:35 Anemia 106743035 Active 2024 [facility] [employer] [facility] 5 16:55:22 Problem Notes None recorded. Procedures Surgical History Date Name Laterality Status Provider Name and Address Organization Details Recorded Time 4 Blank Procedure Note completed Nicholas Jhaveri MD [address] [facility], [facility] [address], [place], [address], [facility] 02/21/2024 11:30:36 Imaging Results None recorded. Procedure Notes None recorded. Medical Equipment None Reported. Allergies Allergen ID Allergen Name Allergen Category Reaction Reaction Severity Criticality Documentation Date Start Date Code Code System Note Provider Name and Address Organization Details Recorded Time 2710 Voltaren medicatio n Not available Not available Not available 05/17/2022 36748 6 RxNorm Impot ence Not Available [facility] 3 01:33:54 2712 Product containin g 3-hydroxy -3-methyl glutaryl- coenzyme A reductase inhibitor (product) medicatio n Not available Not available Not available 05/17/2022 00184 009 SNOMED Not Available [facility] 3 01:33:54 2713 Crestor medicatio n myalgias (muscle pain) Not available Not available 05/17/2022 20921 4 RxNorm Not Available [facility] 3 01:33:54 2714 atorvasta tin medicatio n myalgias (muscle pain) Not available Not available 05/17/2022 67785 RxNorm Not Available [facility] 3 01:33:54 Medications Name Sig Start Date Stop Date Status Note LastModified by Organization Details LastModified Time celecoxib 200 mg capsule TAKE 1 CAPSULE BY MOUTH DAILY active Not Available Not Available No t Available cyclobenz aprine 10 mg tablet one three times a day as needed 07/10 completed Not Available Not Available Not Available amoxicill in 500 mg capsule TAKE 1 CAPSULE BY MOUTH TWICE DAILY AFTER MEALS 02/13 completed Not Available Not Available Not Available doxycycli ne hyclate 100 mg capsule active Not Available Not Available Not Available atorvasta tin 20 mg tablet TAKE 1 TABLET BY MOUTH EVERY DAY 11/14 completed Not Available Not Available Not Available atorvasta tin 10 mg tablet active Not Available Not Available Not Available benzonata te 200 mg capsule Take 1 capsule 3 times a day by oral route. 09/10 completed Not Available Not Available Not Available valacyclo vir 1 gram tablet Take 1 tablet 3 times a day by oral route. active Not Available Not Available No t Available hydrocodo ne 5 mg-acetam inophen 325 mg tablet TAKE 1 TABLET BY MOUTH EVERY 6 HOURS NEEDED FOR PAIN (MODERAT E) 07/13 completed Not Available Not Available Not Available sulfameth oxazole 800 mg-trimet hoprim 160 mg tablet active Not Available Not Available Not Available aspirin 81 mg tablet,de layed release Take 1 tablet every day by oral route. 02/02 completed Not Available Not Available Not Available tramadol 50 mg tablet active Not Available Not Available Not Available amoxicill in 500 mg tablet TAKE FOUR TS PO 1 HOUR B DAPP 02/13 completed Not Available Not Available Not Available levothyro xine 75 mcg tablet TAKE 1 TABLET BY MOUTH EVERY DAY active Not Available Not Available No t Available oxycodone -acetamin ophen 5 mg-325 mg tablet TAKE 1 TABLET BY MOUTH EVERY 6 HOURS NEEDED FOR PAIN 02/18 completed Not Available Not Available Not Available cephalexi n 500 mg capsule 08/10 completed Not Available Not Available Not Available cyanocoba melanie (vit B-12) 1,000 mcg/mL injection solution Inject 1 mL every month by subcutan eous route. 2024 active Not Available Not Available Not Avai lable levothyro xine 125 mcg tablet TAKE 1 TABLET BY MOUTH EVERY DAY 05/19 completed Not Available Not Available Not Available docusate sodium 100 mg capsule TAKE 1 CAPSULE BY MOUTH TWICE A DAY 02/18 completed Not Available Not Available Not Available gabapenti n 300 mg capsule TAKE 1 CAPSULE BY MOUTH THREE TIMES DAILY 01/24 completed Not Available Not Available Not Available mupirocin 2 % topical ointment active Not Available Not Available Not Available Levaquin 500 mg tablet Take 1 tablet every 24 hours by oral route. 09/10 completed Not Available Not Available Not Available [place] 7.5 mg-325 mg tablet one three times a day for shingle pain active IFTIKHARI FADI 03/11/19 51 9 HYDROCOD ONE BITARTRA TE AND ACETAMIN 325 MG-5 MG 21 7 Insuranc [facility] BETZAIDA PEREZ RILENE Haley Not Available Not Available Not Available methylpre dnisolone 4 mg tablets in a dose pack Take by oral route as per package insert active Not Available Not Available No t Available ketoconaz ole 2 % topical cream APPLY TOPICALL Y TO BOTTOM OF BOTH FEET TWICE DAILY NEEDED 08/15 completed Not Available Not Available Not Available tobramyci n 0.3 %-dexamet hasone 0.1 % eye drops,inessa pension INSTILL 1 DROP INTO AFFECTED EYE EVERY 4 HOURS. SHAKE WELL 06/05 completed Not Available Not Available Not Available oxycodone 5 mg tablet 08/10 completed Not Available Not Available Not Available metoprolo l tartrate 25 mg tablet 02/02 completed Not Available Not Available Not Available sildenafi l (pulmonar y hypertens ion) 20 mg tablet Three tablets one hour before sexual encounte r 02/02 completed Not Available Not Available Not Available acetamino phen 02/09 completed Not Available Not Available Not Available aspirin 81 mg 08/19 completed Not Available Not Available Not Available sennoside s-docusat e sodium 8.6-50 mg twice a day 05/24 completed Not Available Not Available Not Available Livalo 4 mg tablet TAKE 1 TABLET BY MOUTH EVERY DAY active Not Available Not Available No t Available Suprep Bowel Prep Kit 17.5 gram-3.13 gram-1.6 gram oral solution USE DIRECTED 07/13 completed Not Available Not Available Not Available Eliquis 2.5 mg tablet Take 1 tablet twice a day by oral route. 08/10 completed Not Available Not Available Not Available Anusol-HC 2.5 % topical cream with perineal applicato r APPLY A THIN LAYER TO THE AFFECTED AREA(S) BY TOPICAL ROUTE 2-4 TIMESDAI LY 06/05 completed Not Available Not Available Not Available Fluzone High-Dose 5170-1161 (PF) 180 mcg/0.5 mL intramusc ular syringe TO BE ADMINIST ERED BY [employer] FOR IMMUNIZA TION active Not Available Not Available No t Available Fluzone High-Dose 2018- (PF) 180 mcg/0.5 mL intramusc ular syringe TO BE ADMINIST ERED BY [employer] FOR IMMUNIZA TION 07/13 completed Not Available Not Available Not Available Paxlovid 300 mg (150 mg x 2)-100 mg tablets in a dose pack TK 2 NIRMATRE LVIR TS AND 1 RITONAVI R T TOGETHER PO TWICE DAILY FOR 5 DAYS 08/20 completed Not Available Not Available Not Available Paxlovid 150 mg-100 mg tablets in a dose pack (Moderate Renal Dose) Take by oral route. Take two 150 mg and one 100 mg tablet twice daily for five days 01/24 completed Not Available Not Available Not Available Vitals Date Recorded Body height Body mass index (BMI) Body weight Heart rate Body temperature Oxygen saturation Oxygen saturation in Arterial blood by Pulse oximetry Systolic blood pressure Diastolic blood pressure Provider Name and Address Organization Details Last Updated DateTime 4 175.26 cm 32.5 kg/m2 64436.3 2 g 84 /min 97.8 [degF] 98 % 98 % 138 mm[Hg] 86 mm[Hg] REDDY Allen [facility] [employer] [facility] 4 10:38:27 Date Recorded Body height Body mass index (BMI) Body weight Provider Name and Address Organization Details Last Updated DateTime 02/07/2024 180.34 cm 30.7 kg/m2 04874.32 g Chastity Szymanski MA [facility] [employer] [facility] 02/07/2024 10:54:37 Date Recorded Body height Body mass index (BMI) Body weight Heart rate Body temperature Oxygen saturation Oxygen saturation in Arterial blood by Pulse oximetry Systolic blood pressure Diastolic blood pressure Provider Name and Address Organization Details Last Updated DateTime 4 180.34 cm 31.1 kg/m2 613338. 1 g 78 /min 97 [degF] 98 % 98 % 130 mm[Hg] 90 mm[Hg] REDDY Allen [facility] [employer] [facility] 4 10:24:23 Date Recorded Body height Body mass index (BMI) Body weight Body temperature Heart rate Respiratory rate Oxygen saturation Oxygen saturation in Arterial blood by Pulse oximetry Systolic blood pressure Diastolic blood pressure Provider Name and Address Organization Details Last Updated DateTime 4 180.34 cm 31.1 kg/m2 098992. 1 g 98.6 [degF] 86 /min 14 /min 98 % 98 % 130 mm[Hg] 90 mm[Hg] Chastity Szymanski MA [facility] 4 10:43:14 Date Recorded Body height Body mass index (BMI) Body weight Heart rate Body temperature Oxygen saturation Oxygen saturation in Arterial blood by Pulse oximetry Systolic blood pressure Diastolic blood pressure Provider Name and Address Organization Details Last Updated DateTime 5 175.26 cm 32.9 kg/m2 777872. 1 g 61 /min 97 [degF] 95 % 95 % 120 mm[Hg] 78 mm[Hg] Neelima Timo [place] [facility] 5 14:19:23 Social History Question Answer Notes LastModified by [employer] ion Details LastModified Time Tobacco Smoking Status Never Smoker Not Available [facility] 05/17/2022 00:50:47 What Is Your Level Of Alcohol Consumption? None [id number] Information not available 05/17/2022 Are You Blind Or Do You Have Difficulty Seeing? No [id number] Information not available 05/17/2022 What Is Your Level Of Caffeine Consumption? None [facility] Information not available 02/07/2024 In The 14 Days Before Symptom Onset, Have You Had Close Contact With A Laboratory-confirm ed COVID-19 While That Case Was Ill? No [id number] Information not available 05/17/2022 In The 14 Days Before Symptom Onset, Have You Had Close Contact With A Person Who Is Under Investigation For COVID-19 While That Person Was Ill? No [id number] Information not available 05/17/2022 Are You Currently Employed? No Retired Information not available 02/07/2024 Are You Deaf Or Do You Have Serious Difficulty Hearing? No [id number] Information not available 05/17/2022 What Was The Date Of Your Most Recent Tobacco Screening? 06/07/2020 [id number] Information not available 05/17/2022 What Is Your Relationship Status? [facility] Information not available 02/07/2024 Do You Use Any Illicit Or Recreational Drugs? No Information not available 02/07/2024 Have You Recently Traveled Abroad? No [id number] Information not available 05/17/2022 Sex: Unknown Functional Status Question Answer Note LastModified by Organ[employer]at [employer] Details LastModified Time Do you have difficulty walking or climbing stairs? No [id number] Information not available 05/17/2022 Do you have transportation difficulties? No [id number] Information not available 05/17/2022 Are you able to walk? [facility]OREST [id number].[id number] 026 Information not available 05/17/2022 Do you have difficulty doing errands alone? No [id number] 026 Information not available 05/17/2022 Are you able to care for yourself? Yes [id number] Information not available 05/17/2022 Do you have difficulty dressing or bathing? No [id number].[id number] 026 Information not available 05/17/2022 Mental Status Question Answer Note LastModified by [employer] Details LastModified Time Do you have difficulty concentrating, remembering or making decisions? No [id number] Information not available 05/17/2022 Family History Relationship Description Onset Age of this Age Resolved Age Notes LastModified by Organization Details LastModified Time Unspecified Relation Diabetes mellitus [id number] Not available 05/17/2022 01:01:33 Notes:Mother 89 from my eloid dysplasia Father 88 from COPD and Ca of prostate Has one sister who is living and in good health Medical History Condition Response NERVE DISEASE N BLINDNESS N RHEUMATIC FEVER N KIDNEY STONES N BLADDER PROBLEMS N MRSA N OTHER # 1 N POLIO N LUNG DISEASE/DISORDER N RADIATION / CHEMOTHERAPY N COPD N Other # 2 N BLOOD DISEASES N EAR OR HEARING PROBLEMS N MUMPS N BOWEL PROBLEMS N DEPRESSION (INCLUDING POST ) N STROKE/TIA N ULCERS N BENIGN PROSTATIC HYPERPLASIA N MEASLES N MYOCARDIAL INFARCTION N OBESITY N GERD/NAUSEA N ANEURYSM N URINARY/BLADDER/KIDNEY PROBLEMS N CORONARY ARTERY DISEASE (CAD) N ADDICTION CONCERNS N ENDOMETRIOSIS N Impotence N USE OF BLOOD THINNERS Y SKIN PROBLEMS N GASTROINTESTINAL DISORDER N PERIPHERAL VASCULAR DISEASE N MUSCLE,JOINT OR BONE PROBLEMS N GASTROINTESTINAL BLEEDING N BLOOD CLOTS N ASTHMA N CATARACTS N ERECTILE DYSFUNCTION N VARICOSITIES N GI PROBLEMS Y Low Testosterone N INFERTILITY N AIDS/HIV N CHEMOTHERAPY / RADIATION N LIVER DISEASE N MALE HYPOGONADISM N HYPERTENSION N Deficiency N TOURETTE'S N ANXIETY DISORDER N BLOOD TRANSFUSION N ANEMIA/BLOOD DISORDER N CHRONIC EAR INFECTIONS N BRONCHITIS N TUBERCULOSIS N GLAUCOMA N FOOT PROBLEM N DIVERTICULITIS N SLEEP APNEA N CHICKENPOX N INFECTIOUS DISEASE N HEART ARRHYTHMIA N PROSTATE N INSOMNIA N HIGH CHOLESTEROL / HYPERLIPIDEMIA Y HYPERTHYROIDISM N EYE PROBLEMS N EDEMA N CHRONIC PAIN SYNDROME N HYPOTHYROIDISM Y CAROTID BLOCKAGE N CONSTIPATION N BACK / NECK PROBLEMS Y HAVE YOU BEEN HOSPITALIZED OR SEEN IN [facility] IN THE PAST YEAR ? N ATHEROSCLEROSIS N BREAST PROBLEMS N DIALYSIS N ECZEMA N OSTEOPOROSIS N ARTHRITIS Y NO SIGNIFICANT PAST MEDICAL HISTORY N APPENDICITIS N DIABETES, TYPE N BAD TEETH N ENT N HEARTBURN / REFLUX N AUTISM SPECTRUM DISORDER (ASD) N HEPATITIS / LIVER DISEASE N GOUT N SLEEP DISORDER N ALZHEIMER'S DISEASE N Brain Problems N HERPES N DEMENTIA N HEADACHES/MIGRAINES Y SEIZURES/EPILEPSY N VASCULAR DISEASE N PACEMAKER N Blood Disorder N DIZZINESS N HEART DISEASE/HEART PROBLEMS N KIDNEY DISEASE N MULTIPLE SCLEROSIS N CARDIAC ARRHYTHMIA N CANCER: SPECIFY N ATRIAL FIBRILLATION N Gall Stones N PULMONARY EMBOLISM N AUTOIMMUNE DISEASE N Immunizations Vaccine Type Date Status Note Provider Nam e and Address Organization Details Recorded Time influenza, unspecified formulation 3 completed ALETHEA Kirk Zev [place] [facility] 02/13/2023 10:22:46 SARS-COV-2 (COVID-19) vaccine, UNSPECIFIED 1 completed Not Available [facility] 05/17/2022 01:32:47 SARS-COV-2 (COVID-19) vaccine, UNSPECIFIED 1 completed Not Available [facility] 05/17/2022 01:32:47 COVID-19, mRNA, LNP-S, PF, 30 mcg/0.3 mL dose 1 completed Not Available [facility] 05/17/2022 01:32:47 Influenza, high-dose, quadrivalent, PF 1 completed Not Available [facility] 05/17/2022 01:32:47 pneumococcal polysaccharide PPV23 0 completed Not Available [facility] 05/17/2022 01:32:47 Pneumococcal conjugate PCV 13 9 completed Not Available [facility] 05/17/2022 01:32:48 Influenza, split virus, quadrivalent, PF 6 completed Not Available [facility] 05/17/2022 01:32:48 Influenza, high-dose, trivalent, PF 4 completed REDDY Allen, [place] - [place] [facility] 02/19/2024 14:48:09 Past Encounters Encounter ID Performer Location Encounter Start Date Encounter Closed Date Diagnosis/Indication Diagnosis SNOMED-CT Code Diagnosis ICD10 Code Diagnosis Note [id number] [facility] [place] [address] [facility] [address] [place] [address] 05/24/2020 00:00:00 05/24/2020 14:09:30 [id number] [facility] [place] [address] [facility] [address] [place] [address] 06/07/2020 00:00:00 06/07/2020 15:05:20 [id number] [facility] [place] [address] [facility] [address] [place] [address] 08/02/2020 00:00:00 08/02/2020 15:41:11 [id number] [facility] [place] [address] [place] [place] [address] 08/10/2020 00:00:00 08/10/2020 11:51:13 [id number] [facility] [place] [address] [facility] [address] [place] [address] 08/18/2020 00:00:00 08/18/2020 15:06:22 [id number] [facility] [place] [address] [facility] [address] [place] [address] 08/30/2020 00:00:00 08/30/2020 16:05:52 [id number] [facility] [place] [address] [place] [address] 12/28/2020 00:00:00 12/28/2020 12:09:14 [id number] [facility] [address] [place] [address] 01/18/2021 00:00:00 01/18/2021 11:17:54 [id number] [facility] [place] [address] [facility] [address] [place] [address] 04/15/2021 00:00:00 04/15/2021 10:33:13 [id number] [facility] [place] [address] [place] [address] y , [place] [address] 06/24/2021 00:00:00 06/24/2021 10:37:19 [id number] [facility] [place] [address] [facility] [address] [place] [address] 08/19/2021 00:00:00 08/19/2021 10:07:42 [id number] [facility] [place] [address] [facility] [address] [place] [address] 10/31/2021 00:00:00 10/31/2021 13:29:57 [id number] [facility] [address] [place] [address] y , [place] [address] 01/24/2022 00:00:00 01/24/2022 15:52:01 [id number] Dhruv Freedman MD [facility] [place] [address] [place] [address] 08/15/2022 10:19:37 08/15/2022 10:50:54 History of meningioma [id number] 74793 Z86.018 Hypothyroidism 70306394 E03.9 Pure hypercholesterolemia 814863620 E78.00 Obese class I [id number] 11654 E66.9 [id number] Dhruv Freedman MD [facility] [address] y , [place] [address] 11/21/2022 14:06:06 11/21/2022 14:30:34 History of polyp of colon 827579635 Z86.010 History of meningioma 11 37964 Z86.018 Hypothyroidism 07436245 E03.9 Pure hypercholesterolemia 286019289 E78.00 Multiple renal cysts 253 049754 N28.1 [id number] Dhruv Freedman MD [facility] Internal Med [place] [address] [place] [address] 02/13/2023 10:13:35 02/13/2023 10:43:19 Prolapsed lumbar intervertebral disc 562826776 M51.26 Hypothyroidism 44624411 E03.9 History of meningioma 11 Z86.018 Obese class I 6273045340 97790 E66.9 [id number] Dhruv Freedman MD [facility] Internal Med [place] [address] [place] [address] [place] [address] 04/03/2023 14:32:50 04/03/2023 14:49:14 History of meningioma 9626043211 74720 Z86.018 Hypothyroidism 97446274 E03.9 Pure hypercholesterolemia 574853236 E78.00 Upper resp iratory infection 46131410 J06.9 [id number] Dhruv Freedman MD [facility] Internal Med [place] [address] [place] [address] [place] [address] 08/21/2023 10:34:11 08/21/2023 10:56:09 History of meningioma 8841097469 33648 Z86.018 Hypothyroidism 67550607 E03.9 Idiopathic peripheral neuropathy 12070580 G60.9 Pure hypercholesterolemia 810334777 E78.00 Disorder of prostate 302 40215 N42.9 [id number] Dhruv Freedman MD [facility] Internal Med [place] [address] [place] [address] [place] [address] 11/27/2023 10:33:09 11/27/2023 10:54:22 Hemorrhoids 31572169 K64.9 [id number] Nicholas alford MD [facility] General Surgery [address] [facility] [place] [address] [place] [address] 02/07/2024 10:16:51 02/12/2024 16:23:58 Epidermoid cyst of skin of back 525790602 L72.0 Nodule on finger 1364501 09 R22.30 [id number] Dhruv Freedman MD [facility] Internal Med [facility] [address] [facility] [address] [place] [address] 02/19/2024 10:15:03 02/19/2024 10:43:57 Hypothyroidism 25620813 E03.9 Osteoarthritis 791638905 M19.90 [id number] Nicholas alford MD [facility] General Surgery [address] [facility] [place] [address] 02/21/2024 10:35:50 04/16/2024 14:11:10 Epidermoid cyst of skin of back 459958152 L72.0 [id number] Dhruv Freedman MD [facility] Primary Care [facility] [address] [facility] [address] [place] [address] 06/05/2024 14:07:45 06/05/2024 14:37:54 History of polyp of colon 755990104 Z86.0100 Idiopathic peripheral neuropathy 34236284 G60.9 Hypothyroidism 08773754 E03.9 Health Concerns Section Related Observation LastModified by Organization Detai ls LastModified Time None Recorded Concern Status LastModified by Organization Details LastModified Time None Recorded Advance Directives Directive None Recorded Payers Encounter Date Sequence Insurance Name Policy Number Policy [place] Covered Member ID [place] Member ID Guarantor Name 11/27/2023 1 [place] Fan Veliz Jr [id number] Fan Barthi 11/27/2023 2 [id number] Fan Veliz Jr [id number] Fan Barthi 02/07/2024 1 [place] Veliz Jr [id number] Fan Barthi 02/07/2024 2 [id number] Fan Velzi Jr [id number] Fan Barthi 02/19/2024 1 [place] Veliz Jr [id number] Fan Barthi 02/19/2024 2 [id number] Fan Veliz Jr [id number] Fan Santamariai 02/21/2024 1 [place] Fan Veliz Jr [id number] Fan Santamariai 02/21/2024 2 [id number] Fan Veliz Jr [id number] Fan Santamariai 06/05/2024 1 [place] Fan Veliz Jr [id number] Fan Santamariai 06/05/2024 2 [id number] Fan Veliz Jr [id number] Fan Veliz Notes Date Note Type Note Provider Name and Address Organization Details Recorded Time 11/27/2023 text/html Patient Name: St andres SantamariaiDate Of Service: Sunday ( 11.27.2023 ): 1950 Age: 73 Vital Signs:Blood Pressure: Sitting Rt. Arm 138/86Pulse: Sitting 84 /min and RegularRespiratory Rate: 12Height 69 in or 1.8 mWeight 220 lb or 99.8 kgBMI 32.5Temperature: 97.8 F or 36.6 CPulse Oximetry: 98 % at rest on no oxygen Chief Complaint: Addressed in HPI Problems or conditions discussed in the HPI were the only ones reviewed during the encounter.Only social and family history addressed in the HPI were reviewed during this encounter. Attendant(s): NoneConstitutional and Systemic Symptoms:none Medication Reconciliation: from medication list. History of Present Illness #1. Pain discomfort in the rectal area similar to what he has experienced in the past with a hemorrhoid. Evaluation and examination of the area reveals a proximally a 2 cm by 1/2 cm thrombosed hemorrhoid. In the proximally 10 o'clock position. No other abnormalities noted.: Active Medication ListSynthroid 0.075 MG (TABLET - ORAL) One DailyCelebrex 200 MG (CAPSULE - ORAL) Bid Adverse Drug Reactions ReviewedVoltaren ImpotenceCrestor MyaliaLipitor Myalgia Vaccination and Geqhlnmizdxj8187-33 Ekwkjhjnp7892-46 Covid Egwlba7968-22 Mxirktdwa2879-58 Prevnar 13 Gc Surgical Wxsxgij1041-46 Lumbar Spinal Xudmfe4314-63 Left and Right NJU2230-89 L4-L5 Payhzvwbl1723-23 L3-L4 Eirpqjufa6841-86 Aoaxxhyomu2973-08 Rt. RGF3051-68 Lt. Knee Fbjmrdhnbap2804-02 Appendectomy Preventative Testing( ) 08/22/2023 Albumin 4.1 G/DL( ) 08/22/2023 PSA 1.46 08/21/2025( ) 08/10/2020 CT Thorax( ) 01/23/2020 HAIC 5.9 % N( ) 2019 Colonoscopy (5 Years) 2024 Social HistoryDoes not smoke. Drinks socially. 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 Family HistoryMother 89 from myeloid dysplasiaFather 88 from COPD and Ca of prostateHas one sister who is living and in good health Dhruv Freedman MD [address] [address], [place], [address], [employer] 11/27/2023 10:51:00 02/07/2024 text/html Patient complain s of cyst on mid back he has had for quite some time. Becoming larger. Would like to have removed. Also has nodule on the middle finger over right hand that he would like removed as well. Denies drainage from either area. Denies fevers Nicholas Jhaveri MD [address] [facility] [address], [place], [address], [employer] 02/08/2024 14:18:35 02/19/2024 text/html Patient Name: St andres Mccarthy Of Service: Sunday ( 02.19.2024 ): 1950 Age: 73 There has been approximately a 3 lb weight gain since 11/27/2023. This represents approximately a 1.4% change in weight. Weight change attributable to lifestyle changes. Vital Signs:Blood Pressure: Sitting Rt. Arm 130/80Pulse: Sitting 78 /min and RegularRespiratory Rate: 14Height 69 in or 1.8 mWeight 223 lb or 101.2 kgBMI 32.9Temperature: 97 F or 36.1 CPulse Oximetry: 98 % at rest on no oxygen Chief Complaint: Addressed in HPI Problems or conditions discussed in the HPI were the only ones reviewed during the encounter.Only social and family history addressed in the HPI were reviewed during this encounter. Attendant(s): NoneConstitutional and Systemic Symptoms:none Medication Reconciliation: from medication list. Oktcwdhlnhw86/27/2023: MRI of the lumbar spine without contrast postsurgical changes noted L3-L4 and L4-L5 decompressive laminectomies. Multiple level degenerative disc disease and joint disease worse at L3-L4 -L4-L5 and L5-S1. There is multiple left renal cyst noted. Compared to a CT scan done back in [address] changes are noted in the kidney. May need to have further evaluation of these. 11/24/2022: CT scan of the abdomen pelvis with contrast demonstrates small cyst in the kidney which is appears benign no other abnormalities noted no further testing is required at this time History of Present Illness #1. Hx of hypothyroidism currently stable. Heat intolerance: no Fatigue: no Weight gain: no Difficulty concentrating: no Muscle Symptoms: none Skin Texture: normal Skin Color: normal Currently taking synthroid. #2. Hx of DJD stable. No interval complaints of any additional joint pain, swelling or redness. Joints most involved include hands, knees and hips. Medications: NSAIDS The DJD does interfere with ADL and ambulation. Active Medication ListSynthroid 0.075 MG (TABLET - ORAL) One DailyCelebrex 200 MG (CAPSULE - ORAL) Bid Adverse Drug Reactions ReviewedVoltaren ImpotenceCrestor MyaliaLipitor Myalgia Vaccination and Immunization( ) 2024-02 INFLUENZA( ) 2019-01 PREVNAR 13 GC( ) 2020-01 PNEUMOVAX(X) 2020- [employer] [facility] Nofnemz9065-83 Rfuerqzsuer2442-72 Lumbar Spinal Tpknhe5663-10 Left and Right VUJ2633-94 L4-L5 Osfatqkdfk9080-42 L3-L4 Kzytckzfup0595-97 Lrpycuwdhq5574-00 Rt. PRA4630-26 Lt. Knee Xqqislmyrau7652-92 Appendectomy Preventative Testing( ) 08/22/2023 Albumin 4.1 G/DL( ) 08/22/2023 PSA 1.46 08/21/2025( ) 08/10/2020 CT Thorax( ) 01/23/2020 HAIC 5.9 % N( ) 2019 Colonoscopy (5 Years) 2024 Social HistoryDoes not smoke. Drinks socially. 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 Family HistoryMother 89 from myeloid dysplasiaFather 88 from COPD and Ca of prostateHas one sister who is living and in good health Dhruv Freedman MD [address], [address], [place], [address], [employer] 02/19/2024 10:35:25 02/21/2024 text/html Patient here for excision of back cyst Nicholas Jhaveri MD [address], [address], [place], [address], [employer] 02/21/2024 15:46:33 06/05/2024 text/html Patient Name: St andres SantamariaiDate Of Service: May ( 06.05.2024 ): 1950 Age: 74 Vital Signs:Blood Pressure: Sitting Rt. Arm 120/78Pulse: Sitting 61 /min and RegularRespiratory Rate: 16Height 69 in or 1.8 mWeight 223 lb or 101.2 kgBMI 32.9Temperature: 97 F or 36.1 CPulse Oximetry: 95 % at rest on no oxygen Chief Complaint: Addressed in HPI Problems or conditions discussed in the HPI were the only ones reviewed during the encounter.Only social and family history addressed in the HPI were reviewed during this encounter. Attendant(s): NoneConstitutional and Systemic Symptoms:none Medication Reconciliation: from medication list. Celufcaxvhh85/27/2023: MRI of the lumbar spine without contrast postsurgical changes noted L3-L4 and L4-L5 decompressive laminectomies. Multiple level degenerative disc disease and joint disease worse at L3-L4 -L4-L5 and L5-S1. There is multiple left renal cyst noted. Compared to a CT scan done back in [address] changes are noted in the kidney. May need to have further evaluation of these. 11/24/2022: CT scan of the abdomen pelvis with contrast demonstrates small cyst in the kidney which is appears benign no other abnormalities noted no further testing is required at this time History of Present Illness #1. Neuropathy: History of neuropathy involving both legs. No interval complaints of any increasing numbness, tingling, weakness or ataxia. ADL: no limitations Number(s) of falls: none since last examination. Using support device: none Medication: none. #2. Colon polyps: Hx of colon polyps. No interval complaints of any bleeding or change in bowel habits. Last colonoscopy was longer than five years ago. #3. Hx of hypothyroidism currently stable. Heat intolerance: no Fatigue: no Weight gain: no Difficulty concentrating: no Muscle Symptoms: none Skin Texture: normal Skin Color: normal Currently taking synthroid. #4. History of hypercholesterolaemia: History of the high cholesterol. Not taking any medications and being controlled by diet. No interval complaints of any chest pain, shortness of breath, orthopnea or other cardiovascular complaints. Last lipid panel: lipids persistently elevated Active Medication ListSynthroid 0.075 MG (TABLET - ORAL) One DailyCelebrex 200 MG (CAPSULE - ORAL) Bid Adverse Drug Reactions ReviewedVoltaren ImpotenceCrestor MyaliaLipitor Myalgia Vaccination and Immunization( ) 2023- INFLUENZA( ) 2019-01 PREVNAR 13 GC( ) 2020-01 PNEUMOVAX(X) 2020- COVID [employer] [facility] Cvbrkys7254-84 Ueotozmongv3095-73 Lumbar Spinal Uhehfi9786-03 Left and Right AVZ9755-09 L4-L5 Tzjwfjtdno4686-88 L3-L4 Nbjhfznhau5756-36 Lacvrwtvlk6762-68 Rt. NHQ5727-28 Lt. Knee Nzoceyaohca1691-43 Appendectomy Preventative Testing( ) 08/22/2023 Albumin 4.1 G/DL( ) 08/22/2023 PSA 1.46 08/21/2025( ) 08/10/2020 CT Thorax( ) 01/23/2020 HAIC 5.9 % N(X) 2019 Colonoscopy (5 Years) 2024 Social HistoryDoes not smoke. Drinks socially. 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 Family HistoryMother 89 from myeloid dysplasiaFather 88 from COPD and Ca of prostateHas one sister who is living and in good health Dhruv Freedman MD [address] [facility], [facility] [address], [place], [address], [facility] [employer] 06/05/2024 14:31:40
--- NOTE | 2024-07-15 11:00 | NEURO_ITS ---
Impression: # Complains of numbness of lower extremities. History of back surgeries. ? # Mild neuropathy with absent bilateral sensory nerve responses. ? # Normal needle/EMG exam. ? # Clinical correlation recommended. Nerve Conduction Studies Anti Sensory Summary Table ?Stim Site NR Peak (ms) P-T Amp (?V) Site1 Site2 Delta-P (ms) Dist (cm) Sha (m/s) Left Sup Fibular Anti Sensory (Ant Lat Mall)??? NO RESPONSE 14 cm NR 14 cm Ant Lat Mall 16.0 Right Sup Fibular Anti Sensory (Ant Lat Mall)??? NO RESPONSE 14 cm NR 14 cm Ant Lat Mall 16.0 Left Sural Anti Sensory (Lat Mall)??? NO RESPONSE Calf NR Calf Lat Mall 16.0 Right Sural Anti Sensory (Lat Mall)??? NO RESPONSE Calf NR Calf Lat Mall 16.0 Motor Summary Table ?Stim Site NR Onset (ms) O-P Amp (mV) Site1 Site2 Delta-0 (ms) Dist (cm) Sha (m/s) Left Peroneal Motor ([facility]ast[employer] Med) Ankle ? 3.9 2.3 Popit Ankle 9.7 42.0 43 Popit ? 13.6 1.9 Right Peroneal Motor ([employer] Med) Ankle ? 3.4 1.9 Popit Ankle 9.7 42.0 43 Popit ? 13.1 1.6 Left Tibial Motor (Abd Malave Brev) Ankle ? 4.4 4.6 Knee Ankle 9.7 42.0 43 Knee ? 14.1 2.7 Right Tibial Motor (Abd Malave Brev) Ankle ? 4.5 6.2 Knee Ankle 10.3 42.0 41 Knee ? 14.8 3.7 F Wave Studies ?NR F-Lat (ms) L-R F-Lat (ms) Left Peroneal (Mrkrs) (EDB) ? 54.45 0.74 Right Peroneal (Mrkrs) (EDB) ? 53.71 0.74 Left Tibial (Mrkrs) (Abd Hallucis) ? 51.95 0.97 Right Tibial (Mrkrs) (Abd Hallucis) ? 52.92 0.97 EMG ?Side Muscle Nerve Root Ins Act Fibs Amp Dur Recrt Comment Right AntTibialis Dp Br Fibular L4-5 Nml Nml Nml Nml Nml Right Gastroc Tibial S1-2 Nml Nml Nml Nml Nml Right Fibularis Long Sup Br Fibular L5-S1 Nml Nml Nml Nml Nml Right Flex Dig Long Tibial L5-S2 Nml Nml Nml Nml Nml Right Ext Dig Brev Dp Br Fibular L5, S1 Nml Nml Nml Nml Nml Right QuadratusFem QuadFemoris L4-5, S1 Nml Nml Nml Nml Nml Left AntTibialis Dp Br Fibular L4-5 Nml Nml Nml Nml Nml Left Gastroc Tibial S1-2 Nml Nml Nml Nml Nml Left Fibularis Long Sup Br Fibular L5-S1 Nml Nml Nml Nml Nml Left Flex Dig Long Tibial L5-S2 Nml Nml Nml Nml Nml Left Ext Dig Brev Dp Br Fibular L5, S1 Nml Nml Nml Nml Nml Left QuadratusFem QuadFemoris L4-5, S1 Nml Nml Nml Nml Nml MTDD
== END 2024-07-15 09:41 | disposition home or self-care (01) ==
PROVIDERS: PCP Internal Medicine; Visit Provider Internal Medicine
DX: G62.89 Other specified polyneuropathies (principal); R20.0 Anesthesia of skin
CPT/HCPCS: 95886; 95910

== ENCOUNTER 2024-08-07 00:23 | Day surgery (SDC) | payer MEDICARE, SELFPAY ==
[2024-07-31 10:10] VITALS: BMI 30.7
--- OUTSIDE RECORDS SUMMARY | 2024-08-07 00:27 | XMS_ITS | Data Portability ---
Author Organization [place] [facility] [employer], Main Office Address [address] [place] [address] Care Team Providers Care Cash Register Mechanic Name Role Phone FREEDMAN DHRUV Primary Care Provider [phone] IZABELLA DHRUV Referring Provider [phone] Assessment Encounter Date Assessment Date Assessment LastModified [...] recorded. Lab vitamin B12, serum 2024 [id number] [email or web address] [facility] Out[facility], [address] [place], [address], 10:33:45 folate, serum 2024 025 [email or web address] [facility] - Outpatient Lab, [address] [place], [address], 10:33:45 Referral None recorded. Procedures None recorded. Surgeries None recorded. Imaging None recorded. Medication Orders Anusol-HC 2.5 % topical cream with perineal applicator 2023 024 [email or web address] [id number], [address] [place], [place], [phone], 14:19:35 Patient TargetsNo targets recorded. Patient Instructions Encounter Date Encounter Id Patient Instructions Last Modified By Organization Details Last Modified Time 11/27/2023 [id number] Currently thrombosed hemorrhoid. Recommend surgical consultation. Additional Orders - Directives - Recommendations 1. General surgery consultation for external thrombosed hemorrhoid Keep Appointment: Sun 09:30 AM [place] Portions of the record may have been created with voice recognition software. Occasional wrong-word or gcogm-m-miqe substitutions may have occurred due to the inherent limitations of voice recognition software. Read the chart carefully and recognize, using context, where substitutions have occurred. [email or web address] Not available 11/27/2023 10:50:23 02/19/2024 [id number] Istory of hypothyroidism, degenerative joint disease clinically [...] with voice recognition software. Occasional wrong-word or guawn-u-zrcw substitutions may have occurred due to the inherent limitations of voice recognition software. Read the chart carefully and recognize, using context, where substitutions have occurred. Created: Dhruv Freedman M.D. 02.19.2024 09:35 AM [email or web address] Not available 02/19/2024 10:35:20 06/05/2024 [id number] History of neuropathy lower extremities along with [...] of neuropathy Keep Appointment: Sun 09:30 AM [place] Portions of record are template driven. When necessary additional context will be provided. Additionally some portions have been created with voice recognition software. Occasional wrong-word or acquz-a-webd substitutions may have occurred due to the inherent limitations of voice recognition software. Read the chart carefully and recognize, using context, where substitutions may have occurred. Created: Dhruv Freedman M.D. 06.05.2024 01:31 PM [email or web address] Not available 06/05/2024 14:31:18 Reason for Referral [...] pg/mL will have sympt oms. Not Available [employer] [facility] [address] [place], [address], 06/06/2024 07:18:44 06/06/19 25 06/06/2024 VITAM IN B12/F OLATE , SERUM PANEL folate, serum 3.0 NG/mL low Refer ence Range Low: <3.4 Borde rline : 3.4-5 .4 Mitzy l: >5.4 Not Available [facility] [address] [place], [address], 06/06/2024 07:18:44 07/17/19 25 07/15/2024 elect romyo gram + nerve condu ction study No observ ation record ed. [email or web address] [facility] [address], [place], [address], 07/16/2024 18:13:14 Result Notes None recorded. Problems Name Problem SNOMED Code Status Onset Date Resolution Date Notes Provider Name and Address Organization Details Recorded Time History of meningiom a 91668441027 9101 Active 2020 Not Available [facility] 3 01:14:33 Lumbar radiculop athy 996290438 Active Not Available [facility] 3 01:14:34 Pain in both feet 49682835470 329909 Active 2021 Not Available [facility] 3 01:14:34 Postopera tive visit 881219883 Active 2018 Not Available [facility] 3 01:14:34 Idiopathi c periphera l neuropath y 51101154 Active 2021 Not Available [facility] 3 01:14:34 Transient cerebral ischemia 686831781 Active Not Available [facility] 3 01:14:34 Pure hyperchol esterolem ia 343523111 Active Not Available [facility] 3 01:14:34 Disorder of prostate 65570975 Active 2021 Not Available [facility] 3 01:14:34 Neuraprax ia 789548946 Active 2019 Not Available [facility] 3 01:14:34 Osteoarth ritis 127742332 Active 2018 Not Available [facility] 3 01:14:34 Onychomyc osis of toenails 564173189 Active 2021 Not Available [facility] 3 01:14:35 Hypothyro idism 18263308 Active Not Available [facility] 3 01:14:35 History of polyp of colon 265355429 Active 2018 Not Available [facility] 3 01:14:35 Acquired left hallux rigidus 97463193320 4105 Active 2018 Not Available [facility] 3 01:14:35 Foot pain 42733092 Active 2018 Not Available [facility] 3 01:14:35 Hyperlipi demia 24080965 Completed Not Available [facility] 3 01:14:35 Transient ischemia 07865761 Active Not Available [facility] 3 01:14:35 Tinea pedis 3963960 Active 2019 Not Available [facility] 3 01:14:36 Pyogenic arthritis of hand 52953686 Active 2019 Not Available [facility] 3 01:14:36 Acquired hallux rigidus 4955138 Active 2018 Not Available [facility] 3 01:14:36 COVID-19 938512126 Active 2021 Not Available [facility] 3 01:14:36 Dystrophi a unguium 29575876 Active 2019 Not Available [facility] 3 01:14:36 Acute pharyngit is 486411797 Active 2022 Dhruv Freedman MD [address], [address], [place], [address] , [facility] [place] [facility] 3 10:57:52 Obese class I 10966309016 4107 Active 2022 Dhruv Freedman MD [address], [address], [place], [address] , [employer] [facility] 3 10:45:43 Multiple renal cysts 897283778 Active 2022 Dhruv Freedman MD [address], [address], [place], [address] , [employer] [facility] 3 14:20:11 Prolapsed lumbar intervert ebral disc 391548700 Active 2022 Dhruv Freedman MD [address], [address], [place], [address] , [employer] [facility] 3 10:35:26 Upper respirato ry infection 28547655 Active 2023 Dhruv Freedman MD [address], [place], [address] , [employer] - [facility] 4 14:39:12 Fever 821897465 Active 2023 Neelima Rodríguezchelseya null, [place] [facility] [place] [facility] 4 14:41:13 Hemorrhoi ds 70075396 Active 2023 Suzikraig Mccormack null[place] [facility] [place] [facility] 4 10:47:24 Hemorrhoi ds 49783704 Active 2023 Dhruv Freedman MD [address] [facility], [facility] [address], [place], [address] , [facility] [place] [facility] 4 10:49:34 Sebaceous cyst of skin 350049412 Active 2023 Neelima Rodríguezchelseya null, [place] [facility] [place] [facility] 4 15:27:21 Epidermoi d cyst of skin of back 442602678 Active 2023 Nicholas alford MD [address] [facility], [place] [address], [place], [address] , [facility] [place] [facility] 4 14:18:04 Nodule on finger 978716480 Active 2023 Nicholas alford MD [address] [facility], [place] [address], [place], [address] , [facility] - [facility] 4 14:18:27 Disorder of autonomic nervous system 93147471 Active 2024 Suzikraig Munguiason null[place] [facility] [place] [facility] 5 14:40:26 Periphera l nerve disease 220152082 Active 2024 Suzi [place]on null[place] [facility] [place] [facility] 5 14:41:49 Neuropath y 338257696 Active 2024 Suzi [place] null[place] [facility] [place] [facility] 5 14:42:47 Pain in limb 31681706 Active 2024 Suzi [place] [facility] [place] [facility] 5 14:44:30 Bilateral tarsal tunnel syndrome 44445997171 062920 Active 2024 Suzi [place] [facility] [place] [facility] 5 14:47:30 Left side sciatica 25555072413 9104 Active 2024 Suzi diaz[place] - [place] [facility] 5 14:48:05 Numbness of limbs 392774924 Active 2024 Suzi [place]iaz[place] [facility] 5 14:50:35 Anemia 805080724 Active 2024 Neelima diaz[place] [facility] 5 16:55:22 Nerve root disorder 00230928 Active 2024 Dhruv Freedman MD [address] [facility] [address], [place], [address] , [facility] [place] [facility] 5 17:17:45 Nutrition al anemia 58261743 Active 2024 Neelima diaz[place] [facility] 5 17:57:53 Problem Notes None recorded. Procedures Surgical History Date Name Laterality Status Provider Name and Address Organization Details Recorded Time 4 Blank Procedure Note completed Nicholas Jhaveri MD [address] [facility], [facility] [address], [place], [address], [facility] 02/21/2024 11:30:36 Imaging Results None recorded. Procedure Notes None recorded. Medical Equipment None Reported. Allergies Allergen ID Allergen Name Allergen Category Reaction Reaction Severity Criticality Documentation Date Start Date Code Code System Note Provider Name and Address Organization Details Recorded Time 2710 Voltaren medicatio n Not available Not available Not available 05/17/2022 80687 6 RxNorm Impot ence Not Available [facility] 3 01:33:54 2712 Product containin g 3-hydroxy -3-methyl glutaryl- coenzyme A reductase inhibitor (product) medicatio n Not available Not available Not available 05/17/2022 57528 009 SNOMED Not Available [facility] 3 01:33:54 2713 Crestor medicatio n myalgias (muscle pain) Not available Not available 05/17/2022 31958 4 RxNorm Not Available [facility] 3 01:33:54 2714 atorvasta tin medicatio n myalgias (muscle pain) Not available Not available 05/17/2022 38792 RxNorm Not Available [facility] 3 01:33:54 Medications Name Sig Start Date [...] completed Not Available Not Available Not Available [place] 7.5 mg-325 mg tablet one three times a day for shingle pain active ROBERT APONTE 03/11/19 51 9 HYDROCOD ONE BITARTRA TE AND ACETAMIN 325 MG-5 MG 21 7 Insuranc e [facility] ILENE SNOW Not Available Not Available Not Available methylpre [...] Available Not Available Not Available Fluzone High-Dose 0320-3142 (PF) 180 mcg/0.5 mL intramusc ular syringe TO BE ADMINIST ERED BY [employer] FOR IMMUNIZA TION active Not Available Not Available No t Available Fluzone High-Dose (PF) 180 mcg/0.5 mL intramusc ular syringe TO BE ADMINIST ERED BY [employer] FOR IMMUNIZA TION 07/13 completed Not Available [...] Updated DateTime 4 175.26 cm 32.5 kg/m2 63049.3 2 g 84 /min 97.8 [degF] 98 % 98 % 138 mm[Hg] 86 mm[Hg] REDDY [place] [facility] [place] [employer] [facility] 4 10:38:27 Date Recorded Body height Body mass index (BMI) Body weight Provider Name and Address Organization Details Last Updated DateTime 02/07/2024 180.34 cm 30.7 kg/m2 68741.32 g Chastity Szymanski [place] [facility] [employer] [facility] 02/07/2024 10:54:37 Date Recorded Body height Body mass index (BMI) Body weight Heart rate Body temperature Oxygen saturation Oxygen saturation in Arterial blood by Pulse oximetry Systolic blood pressure Diastolic blood pressure Provider Name and Address Organization Details Last Updated DateTime 4 180.34 cm 31.1 kg/m2 456260. 1 g 78 /min 97 [degF] 98 % 98 % 130 mm[Hg] 90 mm[Hg] Radha REDDY Huang [facility] [employer] [facility] 4 10:24:23 Date Recorded Body height Body mass index (BMI) Body weight Body temperature Heart rate Respiratory rate Oxygen saturation Oxygen saturation in Arterial blood by Pulse oximetry Systolic blood pressure Diastolic blood pressure Provider Name and Address Organization Details Last Updated DateTime 4 180.34 cm 31.1 kg/m2 085268. 1 g 98.6 [degF] 86 /min 14 /min 98 % 98 % 130 mm[Hg] 90 mm[Hg] Chastity Szymanski [facility] [employer] [facility] 4 10:43:14 Date Recorded Body height Body mass index (BMI) Body weight Heart rate Body temperature Oxygen saturation Oxygen saturation in Arterial blood by Pulse oximetry Systolic blood pressure Diastolic blood pressure Provider Name and Address Organization Details Last Updated DateTime 5 175.26 cm 32.9 kg/m2 745672. 1 g 61 /min 97 [degF] 95 % 95 % 120 mm[Hg] 78 mm[Hg] Neelima [place] [employer] [facility] [employer] [facility] 5 14:19:23 Social History Question Answer Notes LastModified by Organizat ion Details LastModified Time Tobacco Smoking Status Never Smoker Not Available [facility] 05/17/2022 00:50:47 Are You Blind Or Do You Have Difficulty Seeing? No [id number] Information not available 05/17/2022 What Is Your Level Of Caffeine Consumption? None Information not available 02/07/2024 In The 14 Days Before Symptom Onset, Have You Had Close Contact With A Laboratory-confirm ed COVID-19 While That Case Was Ill? No [id number].[id number] 026 Information not available 05/17/2022 In The 14 Days Before Symptom Onset, Have You Had Close Contact With A Person Who Is Under Investigation For COVID-19 While That Person Was Ill? No [id number].[id number] 026 Information not available 05/17/2022 Are You Deaf Or Do You Have Serious Difficulty Hearing? No MIGRATION.[id number] 026 Information not available 05/17/2022 What Was The Date Of Your Most Recent Tobacco Screening? 06/07/2020 [id number].[id number] 026 Information not available 05/17/2022 What Is Your Relationship Status? Information not available 02/07/2024 Have You Recently Traveled Abroad? No [id number].[id number] 026 Information not available 05/17/2022 Do You Have Difficulty Walking Or Climbing Stairs? No MIGRATION.[id number] 026 Information not available 05/17/2022 Sex: Unknown Functional Status Question Answer Note LastModified by [email or web address] Details LastModified Time Do you use any illicit or recreational drugs? No Information not available 02/07/2024 What is your level of alcohol consumption? None MIGRATION.545086 0625 Information not available 05/17/2022 Are you currently employed? No [place] [address] Information not available 02/07/2024 Do you have transportation difficulties? No MIGRATION.[id number] 0448 Information not available 05/17/2022 Are you able to walk? [place]WOREST MIGRATION.[id number] 2465 Information not available 05/17/2022 Do you have difficulty doing errands alone? No MIGRATION.[id number] 5460 Information not available 05/17/2022 Are you able to care for yourself? Yes MIGRATION.[id number] 7511 Information not available 05/17/2022 Do you have difficulty dressing or bathing? No MIGRATION.562967 1680 Information not available 05/17/2022 Mental Status Question Answer Note LastModified by Organizat ion Details LastModified Time Do you have difficulty concentrating, remembering or making decisions? No [id number].[id number] 6 Information not available 05/17/2022 Family History Relationship Description Onset Age of this Age Resolved Age Notes LastModified by Organization Details LastModified Time Unspecified Relation Diabetes mellitus [id number] Not available 05/17/2022 01:01:33 Notes:Mother 89 from my eloid dysplasia Father 88 from COPD and Ca of prostate Has one sister who is living and in good health Medical History Condition Response NERVE DISEASE N BLINDNESS N RHEUMATIC FEVER N KIDNEY STONES N BLADDER PROBLEMS N MRSA N OTHER # 1 N POLIO N LUNG DISEASE/DISORDER N COPD N RADIATION / CHEMOTHERAPY N Other # 2 N BLOOD DISEASES [...] HAVE YOU BEEN HOSPITALIZED OR SEEN IN [facility] IN THE PAST YEAR ? N ATHEROSCLEROSIS [...] influenza, unspecified formulation 3 completed ALETHEA [facility] 02/13/2023 10:22:46 SARS-COV-2 (COVID-19) vaccine, UNSPECIFIED 1 completed Not Available [facility] 05/17/2022 01:32:47 SARS-COV-2 (COVID-19) vaccine, UNSPECIFIED 1 completed Not Available [facility] 05/17/2022 01:32:47 COVID-19, mRNA, LNP-S, PF, 30 mcg/0.3 mL dose 1 completed Not Available [facility] 05/17/2022 01:32:47 Influenza, high-dose, quadrivalent, PF 1 completed Not Available [facility] 05/17/2022 01:32:47 pneumococcal polysaccharide PPV23 0 completed Not Available [facility] 05/17/2022 01:32:47 Pneumococcal conjugate PCV 13 9 completed Not Available [facility] 05/17/2022 01:32:48 Influenza, split virus, quadrivalent, PF 6 completed Not Available [facility] 05/17/2022 01:32:48 Influenza, high-dose, trivalent, PF 4 completed REDDY [place] [facility] 02/19/2024 14:48:09 Past Encounters Encounter ID Performer Location Encounter Start Date Encounter Closed Date Diagnosis/Indication Diagnosis SNOMED-CT Code Diagnosis ICD10 Code Diagnosis Note [id number] Ravi Mcnulty MD [facility] [place] [address] [facility] [address] [place] [address] 05/24/2020 00:00:00 05/24/2020 14:09:30 [id number] Ravi Mcnulty MD [facility] [place] [address] [facility] [address] [place] [address] 06/07/2020 00:00:00 06/07/2020 15:05:20 [id number] Ravi Mcnulty MD [facility] [place] [address] [facility] [address] [place] [address] 08/02/2020 00:00:00 08/02/2020 15:41:11 [id number] Dhruv Freedman MD [facility] [place] [address] [facility] y , [facility] [place] [address] 08/10/2020 00:00:00 08/10/2020 11:51:13 [id number] Ravi Mcnulty MD [facility] [place] [address] [place] [address] 08/18/2020 00:00:00 08/18/2020 15:06:22 [id number] Ravi Mcnulty MD [facility] [place] [address] [place] [address] 08/30/2020 00:00:00 08/30/2020 16:05:52 [id number] Dhruv Freedman MD [facility] [address] [place] [address] 12/28/2020 00:00:00 12/28/2020 12:09:14 [id number] Dhruv Freedman MD [facility] Internal [facility] [address] [place] [address] [place] [address] 01/18/2021 00:00:00 01/18/2021 11:17:54 [id number] Ravi Mcnulty MD [facility] [place] [address] [place] [address] 04/15/2021 00:00:00 04/15/2021 10:33:13 [id number] Dhruv Freedman MD [facility] Internal Med [facility] [address] [facility] [address] , [place] [address] 06/24/2021 00:00:00 06/24/2021 10:37:19 [id number] Ravi Mcnulty MD [facility] [place] [address] [place] [address] 08/19/2021 00:00:00 08/19/2021 10:07:42 [id number] [facility] [place] [address] [place] [address] 10/31/2021 00:00:00 10/31/2021 13:29:57 [id number] Dhruv Freedman MD [facility] [place] [address] [place] [address] y , [place] [address] 01/24/2022 00:00:00 01/24/2022 15:52:01 [id number] Dhruv Freedman MD [facility] Internal [place] [address] [place] [address] y , [place] [address] 08/15/2022 10:19:37 08/15/2022 10:50:54 History of meningioma 5134873393 20632 Z86.018 Hypothyroidism 13861869 E03.9 Pure hypercholesterolemia 342350325 E78.00 Obese class I 8074862447 47055 E66.9 [id number] Dhruv Freedman MD [facility] Internal [place] [address] [place] [address] y , [place] [address] 11/21/2022 14:06:06 11/21/2022 14:30:34 History of polyp of colon 201922864 Z86.010 History of meningioma 11 60682 Z86.018 Hypothyroidism 13879144 E03.9 Pure hypercholesterolemia 297411764 E78.00 Multiple renal cysts 253 831145 N28.1 [id number] Dhruv Freedman MD [facility] Internal [facility] [address] [place] [address] y , [place] [address] 02/13/2023 10:13:35 02/13/2023 10:43:19 Prolapsed lumbar intervertebral disc 019151817 M51.26 Hypothyroidism 50390487 E03.9 History of meningioma 11 03457 Z86.018 Obese class I 7381422604 86230 E66.9 [id number] Dhruv Freedman MD [facility] Internal [place] [address] [place] [address] [place] [address] 04/03/2023 14:32:50 04/03/2023 14:49:14 History of meningioma 3653530915 06695 Z86.018 Hypothyroidism 70238171 E03.9 Pure hypercholesterolemia 465187996 E78.00 Upper resp iratory infection 43658373 J06.9 [id number] Dhruv Freedman MD [facility] Internal Med [place] [address] [place] [address] [place] [address] 08/21/2023 10:34:11 08/21/2023 10:56:09 History of meningioma 6470569875 46903 Z86.018 Hypothyroidism 06055207 E03.9 Idiopathic peripheral neuropathy 19993511 G60.9 Pure hypercholesterolemia 234342921 E78.00 Disorder of prostate 302 80644 N42.9 [id number] Dhruv Freedman MD [facility] Internal Med [place] [address] [place] [address] y , [place] [address] 11/27/2023 10:33:09 11/27/2023 10:54:22 Hemorrhoids 87277536 K64.9 [id number] Nicholas alford MD [facility] General Surgery [address] [address] 02/07/2024 10:16:51 02/12/2024 16:23:58 Epidermoid cyst of skin of back 388663294 L72.0 Nodule on finger 2889302 09 R22.30 [id number] Dhruv Freedman MD [facility] Internal Med [facility] [address] [address] 02/19/2024 10:15:03 02/19/2024 10:43:57 Hypothyroidism 91177614 E03.9 Osteoarthritis 012937353 M19.90 [id number] Nicholas alford MD [facility] General Surgery 2043 [facility], [address] [address] 02/21/2024 10:35:50 04/16/2024 14:11:10 Epidermoid cyst of skin of back 754811405 L72.0 [id number] Dhruv Freedman MD [facility] Primary Care [facility] [address] [facility] [address] [place] [address] 06/05/2024 14:07:45 06/05/2024 14:37:54 History of polyp of colon 318685346 Z86.0100 Idiopathic peripheral neuropathy 58948241 G60.9 Hypothyroidism 88392016 E03.9 Health Concerns Section Related Observation LastModified by Organization Detai ls LastModified Time None Recorded Concern Status LastModified by Organization Details LastModified Time None Recorded Advance Directives Directive None Recorded Payers Encounter Date Sequence Insurance Name Policy Number Policy [place] Covered Member ID [place] Member ID Guarantor Name 11/27/2023 1 [place] Fan Brothers Barthi Jr [id number] Fan Barthi 11/27/2023 2 [id number] Fan Brothers Barthi Jr [id number] Fan Barthi 02/07/2024 1 [place] Fan Brothers Barthi Jr [id number] Fan Barthi 02/07/2024 2 [id number] Fan S Barthi Jr [id number] Fan Barthi 02/19/2024 1 [place] Fan Brothers Barthi Jr [id number] Fan Barthi 02/19/2024 2 [id number] Fan S Barthi Jr [id number] Fan Barthi 02/21/2024 1 [place] Fan Brothers Barthi Jr [id number] Fan Barthi 02/21/2024 2 [id number] Fan S Barthi Jr [id number] Fan Barthi 06/05/2024 1 [place] Fan Brothers Barthi Jr [id number] Fan Barthi 06/05/2024 2 [id number] Fan S Barthi Jr [id number] Fan Barthi Notes Date Note Type Note Provider Name and Address Organization Details Recorded Time 11/27/2023 text/html Patient Name: [facility] Mccarthy Of Service: Sunday ( 11.27.2023 ): 1950 [...] Reactions ReviewedVoltaren ImpotenceCrestor MyaliaLipitor Myalgia Vaccination and Rrcctxluvvhk5285-16 Mohsfgpwf9451-02 Covid Txzdcj6465-44 Mfzzhbtfc8587-91 Prevnar 13 Gc Surgical Sizgljd9358-95 Lumbar Spinal Mjanmj5470-08 Left and Right NEQ7301-39 L4-L5 Sjogdbdfr6239-65 L3-L4 Sowirscpb5921-67 Tjukepzley5124-57 Rt. AKA6721-69 Lt. Knee Plsjbuuhvbl4653-53 Appendectomy Preventative Testing( ) 08/22/2023 Albumin 4.1 G/DL( ) 08/22/2023 PSA 1.46 08/21/2025( ) 08/10/2020 CT Thorax( ) 01/23/2020 HAIC 5.9 % N( ) 2019 Colonoscopy (5 Years) 2024 Social HistoryDoes not smoke. Drinks socially. 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 Family HistoryMother 89 from myeloid dysplasiaFather 88 from COPD and Ca of prostateHas one sister who is living and in good health Dhruv Freedman MD [address] [facility], [facility] [address], [place], [address], [place] - [facility] Recombine 11/27/2023 10:51:00 02/07/2024 text/html Patient complain s of cyst on mid back he has had for quite some time. Becoming larger. Would like to have removed. Also has nodule on the middle finger over right hand that he would like removed as well. Denies drainage from either area. Denies fevers Nicholas Jhaveri MD [address], [place], [address], [place] - [facility] Recombine 02/08/2024 14:18:35 02/19/2024 text/html Patient Name: St [...] Systemic Symptoms:none Medication Reconciliation: from medication list. Ayrmqbqvdwf12/27/2023: MRI of the lumbar spine without contrast [...] 2019-01 PREVNAR 13 GC( ) 2020-01 PNEUMOVAX(X) 2020-06 COVID PFIZER Surgical Kmjjfyl0103-84 Xxpznwlsner7587-89 Lumbar Spinal Haxzru9609-99 Left and Right UVT5018-91 L4-L5 Vhjjryfvla8608-48 L3-L4 Fdvquoynyq2533-84 Zgyqrtlcwt3227-14 Rt. KYH4104-26 Lt. Knee Cglcckkpyog6530-97 Appendectomy Preventative Testing( ) 08/22/2023 Albumin 4.1 G/DL( ) 08/22/2023 PSA 1.46 08/21/2025( ) 08/10/2020 CT Thorax( ) 01/23/2020 HAIC 5.9 % N( ) 2019 Colonoscopy (5 Years) 2024 Social HistoryDoes not smoke. Drinks socially. 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 Family HistoryMother 89 from myeloid dysplasiaFather 88 from COPD and Ca of prostateHas one sister who is living and in good health Dhruv Freedman MD [address], [place] [address], [place], [address], [place] 02/19/2024 10:35:25 02/21/2024 text/html Patient here for excision of back cyst Nicholas Jhaveri MD [address], [facility] [address], [place], [address], [place] 02/21/2024 15:46:33 06/05/2024 text/html Patient Name: [facility] and[facility] Mccarthy Of Service: May ( 06.05.2024 ): 1950 [...] Systemic Symptoms:none Medication Reconciliation: from medication list. Tfkjqlldmqi81/27/2023: MRI of the lumbar spine without contrast [...] 2019-01 PREVNAR 13 GC( ) 2020-01 PNEUMOVAX(X) 2020-06 COVID PFIZER Surgical Prkdcyj9166-48 Eyxdstxuaqk1248-13 Lumbar Spinal Gathft7994-88 Left and Right KZC9769-60 L4-L5 Prjktsgreg7199-96 L3-L4 Pmluwjshww5136-32 Icdzfqhnwy9435-22 Rt. ZRD3114-68 Lt. Knee Sctbiyxryuf7177-28 Appendectomy Preventative Testing( ) 08/22/2023 Albumin 4.1 G/DL( ) 08/22/2023 PSA 1.46 08/21/2025( ) 08/10/2020 CT Thorax( ) 01/23/2020 HAIC 5.9 % N(X) 2019 Colonoscopy (5 Years) 2024 Social HistoryDoes not smoke. Drinks socially. 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 Family HistoryMother 89 from myeloid dysplasiaFather 88 from COPD and Ca of prostateHas one sister who is living and in good health Dhruv Freedman MD [address] [facility], [facility] [address], [place], [address], [place] Recombine 06/05/2024 14:31:40
--- OUTSIDE RECORDS SUMMARY | 2024-08-07 00:27 | XMS_ITS | Clinical Summary ---
Author Organization [facility] Address [address] [place] [address] Care Team Providers Care Senior Software Manager Name Role Phone Maik Freemdan MD Primary Care Provider [phone] Allergies Active Allergy Reactions Criticality Noted Date [...] Comments Blood Pressure 104/67 03/05/2023 6:54 AM NEONATAL CRITICAL CARE NURSE Pulse 98 03/05/2023 6:54 AM NEONATAL CRITICAL CARE NURSE Temperature 36.7 C (98.1 F) 03/05/2023 6:54 AM NEONATAL CRITICAL CARE NURSE Respiratory Rate 18 03/05/2023 6:54 AM NEONATAL CRITICAL CARE NURSE Oxygen Saturation 94% 03/05/2023 6:54 AM NEONATAL CRITICAL CARE NURSE Inhaled Oxygen Concentration - - Weight 97.1 kg (214 lb) 03/03/2023 7:35 PM NEONATAL CRITICAL CARE NURSE Height 180.3 cm (5' 11 ) 02/28/2023 5:28 PM NEONATAL CRITICAL CARE NURSE per pt Body Mass Index 29.85 02/28/2023 5:28 PM NEONATAL CRITICAL CARE NURSE Plan of Treatment Health Maintenance Due Date Last Done Comments CT Colonography 1950 Colonoscopy 1950 Colorectal Cancer Screening 1950 FIT-DNA (Cologuard) 1950 FIT 1950 FOBT 1950 Sigmoidoscopy 1950 Annual Visit Topic 1952 Hepatitis C Screening 1969 DTaP/Tdap/Td Vaccines (1 - Tdap) 1970 Pneumococcal Vaccine: 65+ Ye ars (1 of [...] have received informed consent. Yes Care Teams Senior Software Manager Relationship Specialty Start Date End Date Maik Freedman MD [address] [address] PCP - General 03/01/23
--- OUTSIDE RECORDS SUMMARY | 2024-08-07 00:27 | XMS_ITS | Clinical Summary ---
Author Organization [place] [address] [facility] Address [address] [place] [address] Care Team Providers Care Urology Teacher Name Role Phone Maik Freedman MD Primary Care Provider Colby Jaimes MD Unavailable [phone] Allergies Active Allergy Reactions Criticality Noted Date Comments Odeuojs-Rnh-Ljq Reductase Inhibitors Muscle pain Medium 07/14/2019 Medications [...] (07/14/2019): Added automatically from request for surgery [id number] Lumbago 12/15/2015 Degeneration of intervertebral disc of [...] on file Legal Sex Male 4:03 AM PLACEMENT MANAGER Gender Identity Not on file Sexual [...] season) 2023 01/03/2021, 06/04/2020, 05/13/2020 Influenza Vaccine (Season Ended) 2024 01/11/2022, 01/11/2022, 12/28/2020, Additional history exists Pneumococcal vaccine 65+ Completed 02/10/2020, 01/17 Insurance MEDICARE [facility] MEDICARE [employer] [facility] MEDICARE [employer] [facility] MEDICARE [facility] Advance Directives For more information, please contact: [phone] * Full Code (Latest Code Status on File) Date Activated Date Inactivated Comments 07/15/2019 1:14 AM 07/18/2019 3:00 PM Care Teams Urology Teacher Relationship Specialty Start Date End Date Maik Freedman MD [address] [facility] [address] [place] [address] PCP - General 07/14/19 Colby Jaimes MD [address] [facility] [address] [place] [address] Surgeon Anesthesiology 07/25/19
--- OUTSIDE RECORDS SUMMARY | 2024-08-07 00:27 | XMS_ITS | Clinical Summary ---
Author Organization [facility] Address [address] [place] [address] Care Team Providers Care Plumbers And Top Helpers Name Role Phone Maik Freedman MD Unavailable [phone] Maik Freedman MD Primary Care Provider [phone] Source Comments [facility],non-owned Affiliates and Associated Physician Practices is amultiple site organization consisting of ambulatory clinics and hospital sitesin [place], [place], [place] and [place]. This disclosure is being madepursuant to the Care Everywhere program and may not contain all information available regarding this patient. Last updated 17.[facility] Allergies Active Allergy Reactions Criticality Noted Date [...] (01/18/2022): Added automatically from request for surgery [id number] History of colonic polyps 01/30/2019 Osteoarthrosis 01/30/2019 [...] 09/30/2008 Immunizations Immunization Administration Dates Next Due [employer] primary monoval ent 12+ yr 0.3mL Purple [...] heating? Not hard at all 02/24/2023 [facility] - [facility] Stress [...] place to sleep or slept in a residential (including now)? No 02/24/2023 Sex and Gender Information Value Date Recorded Sex Assigned at Not on file Legal Sex Male 11:49 AM WEB CONTENT DIRECTOR Gender Identity Not on file Sexual Orientation [...] this topic Medical Devices Implanted Type Area Stamp Presser Device Identifier Shelf Expiration Date Model / Serial / Lot Kore Fiber Demineralized Cortical Fiber Implanted:Qty: 1 on 02/23/2023 by Flavio Nunez MD at [facility] N/A: Spine Lumbar 10/24/2024 [id number] / [id number] / Description:jy Slnt Dura Duraseal Pg Trilysine Amine 5 Implanted:Qty: 1 on 02/23/2023 by Flavio Nunez MD at [facility] N/A: Spine Lumbar Integra [employer] Carmen 01/17/2024 [id number] / / [id number] 22mm X 10 Mm Cage Implanted:Qty: 1 on 02/23/2023 by Flavio Nunez MD at [facility] N/A: Spine Lumbar 04/01/2026 [id number] 210 / / [id number] 22mm X 10mm Cage Implanted:Qty: 1 on 02/23/2023 by Flavio Nunez MD at [facility] N/A: Spine Lumbar 04/01/2026 [id number] 210 / / [id number] Kore Fiber Demineralized Cortical Fiber Implanted:Qty: 1 on 02/23/2023 by Flavio Nunez MD at [facility] N/A: Spine Lumbar 10/24/2024 [id number] / [id number] / Description:jy Cage Implanted:Qty: 1 on 02/23/2023 by Flavio Nunez MD at [facility] N/A: Spine Lumbar [employer] 04/01/2026 [id number] 211 / / [id number] Description:jy Cage Implanted:Qty: 1 on 02/23/2023 by Flavio Nunez MD at [facility] N/A: Spine Lumbar [id number] 211 / / [id number] Screw Set Spne [place] 5500 Ser Implanted:Qty: 12 on 02/23/2023 by Flavio Nunez MD at [facility] N/A: Spine Lumbar [employer] [id number] / / Screw 6.5mm 50mm Spne Pdcl [place] Nonster Implanted:Qty: 6 on 02/23/2023 by Flavio Nunez MD at [facility] N/A: Spine Lumbar [employer] [id number] / / 8.5x80 Mm Iliac Screw Implanted:Qty: 2 on 02/23/2023 by Flavio Nunez MD at [facility] N/A: Spine Lumbar [id number] / / 7.5x40mm Screw Implanted:Qty: 2 on 02/23/2023 by Flavio Nunez MD at [facility] N/A: Spine Lumbar [id number] / / 7.5x50 Mm Screw Implanted:Qty: 2 on 02/23/2023 by Flavio Nunez MD at [facility] N/A: Spine Lumbar [id number] / / Procedures Procedure Name Priority Date/Time Associated Diagnosis Comments BASIC METABOLIC PANEL (CALCIUM TOTAL) Routine 03/03/2023 3:35 AM WEB CONTENT DIRECTOR from Last 3 Months or Most Recently Relevant to Health Maintenance Results * (ABNORMAL) BASIC METABOLIC PANEL (CALCIUM TOTAL) (03/03/2023 3:35 AM WEB CONTENT DIRECTOR) [facility] Glucose 87 70 - 105 mg/dL 03/03/2023 6:[address] [facility] Sodium 136 136 - 145 mmol/L 03/03/2023 6:[address] [facility] Potassium 3.9 3.5 - 5.1 mmol/L 03/03/2023 6:[address] [facility] Chloride 104 98 - 107 mmol/L 03/03/2023 6:[address] [facility] CO2 21(L) 22 - 29 mmol/L 03/03/2023 6:[address] [facility] Calcium 8.5 8.4 - 10.4 mg/dL 03/03/2023 6:[address] [facility] Anion Gap 11 6 - 16 mmol/L 03/03/2023 6:[address] [facility] BUN 15 7 - 26 mg/dL 03/03/2023 6:[address] [facility] Creatinine 0.81 0.72 - 1.25 mg/dL 03/03/2023 6:[address] [facility] eGFR by CKD-EPI >90 >=90 mL/min/1.7 3 m2 03/03/2023 6:[address] 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
--- OUTSIDE RECORDS SUMMARY | 2024-08-07 00:27 | XMS_ITS | Referral Summary ---
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 Gender Identity Not on file Sexual Orientation [...] of Treatment Not on file Insurance MEDICARE [facility] MEDICARE [facility] MEDICARE [facility] MEDICARE [facility] Advance Directives For more information, please contact: [phone] * Full Code (Latest Code Status on File) Date Activated Date Inactivated Comments 07/15/2019 1:14 AM 07/18/2019 3:00 PM Care Teams Freight Sorter Relationship Specialty Start Date End Date Maik Freedman MD [address] [facility] [address] [place] [address] PCP - General 07/14/19 Colby Jaimes MD [address] [facility] [address] [place] [address] Surgeon Anesthesiology 07/25/19
--- NOTE | 2024-08-07 13:34 | WPDANESEPPF ---
Anes - Initial Pre Proc Eval Procedure: Operation Date: 08/07/24 14:30 Proposed Procedures p Colonoscopy - Raúl Cordero MD Date/Time: 08/07/24 13:34 Surgeon: Raúl Cordero MD Pre Op Diagnosis: Personal history of colon polyps, unspecified Patient Data Age: 74 Gender: M Height: 1.8 m Weight: 100 kg Allergies Allergy/AdvReac Type Severity Reaction Status Date / Time Zhpgulj-BVV-SsV Reductase Allergy Mild Unknown Verified 08/07/24 13:36 Inhibitor Home Medications ?Medication ?Instructions ?Recorded ?Confirmed ?Type celecoxib 200 mg capsule 200 mg PO DAILY 11/28/23 07/31/24 History levothyroxine 75 mcg capsule 75 mcg PO DAILY 11/28/23 07/31/24 History folic acid 20 mg capsule 20 mg PO DAILY 07/31/24 07/31/24 History Patient hx anesthesia problems: none Family hx anesthesia problems: none Results Review: All pre-operative results and documents have been reviewed as part of the pre-operative evaluation. FORMERLY [facility], [facility] Past Medical History Medical History (Updated 08/06/24 @ 14:37 by Obed Molina DO) Hypothyroidism Hyperlipidemia History of meningioma Arthritis Surgical History Surgical History History of lumbar surgery History of foot surgery History of laminectomy History of cataract extraction History of microdiscectomy History of shoulder surgery History of left knee surgery History of hemorrhoidectomy 11/30/2023 - excision thrombosed external hemorrhoid History of carpal tunnel release Family History Family History Other Alcohol abuse Asthma Cerebrovascular accident Diabetes mellitus Social History Social History Smoking status: Never smoker Alcohol intake: never Substance use: never Substance use type: does not use Living arrangements: with family Spiritual care concerns: No Anes - Eval Final PreProcedure Day of Procedure 08/07/24 13:34 Patient weight: overweight Heart: regular rate and rhythm Lungs: clear to auscultation Airway: Mallampati scale class II Neurological: alert and oriented Last oral intake: >/= 8 hours ASA classification: II Emergent: no Anesthetic plan: proceed Anesthesia type and monitoring: general GIVS and standard monitoring Results Review: All pre-operative results and documents have been reviewed as part of the pre-operative evaluation. Informed Consent: The patient's anesthetic plan and its attendant risks and benefits were discussed with the patient/family/POA. Questions were solicited and answers provided to the satisfaction of the patient/family/POA.
[2024-08-07 13:36] VITALS: BP 114/75; PULSE 93; RESP 18; TEMP 36.1; O2SAT 99
[2024-08-07] MEDS: LACTATED RINGERS 1,000 ML 150 ML IV CONT (13:49)
--- NOTE | 2024-08-07 14:59 | PM.HPGS ---
History of Present Illness History of Present Illness Consent: Risks, benefits, and alternatives have been discussed and questions answered. Patient agrees to proceed with procedure. Chief complaint: Personal history of colon polyps, unspecified Narrative: Fan Veliz Jr. is a 74 year old male with colon polyp 5 years ago Review of Systems Review of Systems: All systems reviewed & are unremarkable except as noted in HPI and below PMFSH Past Medical History Medical History (Updated 08/07/24 @ 14:59 by Raúl Cordeor MD) Colon polyp Hypothyroidism Hyperlipidemia History of meningioma Arthritis Surgical History Surgical History History of lumbar surgery History of foot surgery History of laminectomy History of cataract extraction History of microdiscectomy History of shoulder surgery History of left knee surgery History of hemorrhoidectomy 11/30/2023 - excision thrombosed external hemorrhoid History of carpal tunnel release Family History Family History Other Alcohol abuse Asthma Cerebrovascular accident Diabetes mellitus Social History Social History Smoking status: Never smoker Alcohol intake: never Substance use: never Substance use type: does not use Living arrangements: with family Spiritual care concerns: No Meds Home Medications and Allergies Home Medications ?Medication ?Instructions ?Recorded ?Confirmed ?Type celecoxib 200 mg capsule 200 mg PO DAILY 11/28/23 07/31/24 History levothyroxine 75 mcg capsule 75 mcg PO DAILY 11/28/23 07/31/24 History folic acid 20 mg capsule 20 mg PO DAILY 07/31/24 07/31/24 History Allergies Allergy/AdvReac Type Severity Reaction Status Date / Time Ytpgfgg-IPA-GnT Reductase Allergy Mild Unknown Verified 08/07/24 13:36 Inhibitor Vital Signs Vital Signs - 24 hr 08/07/24 13:36 Temperature 97 F L Pulse Rate 93 Respiratory Rate 18 Blood Pressure 114/75 Pulse Oximetry 99 Oxygen Delivery Room Air Exam Const: General: comfortable and no acute distress HENMT: Face/Nose/Sinus: Normal nares present Eyes: General: appearance normal, both eyes and all related structures Neck: Neck: no JVD Resp: Auscultation: clear to auscultation bilaterally Cardio: Rate: regular rate Rhythm: regular rhythm GI: Inspection: non-distended GI Palp: Yes Soft to palpation Skin: General skin exam: normal color Neuro: Speech: normal speech Extrem: General: normal to inspection Psych: Mental Status: mental status grossly normal Assessment and Plan Assessment and plan (1) Colon polyp: Code(s): K63.5 - Polyp of colon Status: Acute Assessment and Plan: colonoscopy
[2024-08-07 15:13] VITALS: BP 93/65; PULSE 80; RESP 22; O2SAT 94
[2024-08-07 15:23] VITALS: BP 106/78; PULSE 75; RESP 18; O2SAT 94
[2024-08-07 15:33] VITALS: BP 105/73; PULSE 75; RESP 17; O2SAT 98
== END 2024-08-07 15:41 | disposition home or self-care (01) ==
PROVIDERS: PCP Internal Medicine; Referring Provider Internal Medicine; Visit Provider Internal Medicine Gastroenterology
PROC: 0DJD8ZZ Inspection of Lower Intestinal Tract, Via Natural or Artificial Opening Endoscopic (ICD-10-PCS; CPT 45378; principal; 2024-08-07 14:30)
DX: Z12.11 Encounter for screening for malignant neoplasm of colon (principal); K57.30 Diverticulosis of large intestine without perforation or abscess without bleeding; Z86.0100 Personal history of colon polyps, unspecified
CPT/HCPCS: G0105; J2003; J2704; J7120